=== PATIENT | male | born 1955 | race African-American/Black ===

== ENCOUNTER 2018-11-29 06:31 | Outpatient (CLI) | payer OTHER ==
[2018-11-29] VITALS (9 sets, daily range): BP systolic 139–171; BP diastolic 58–79
[~2018-11-29] VITALS: Ht 188 cm; Wt 77.1 kg
[~2018-11-29 06:31] MED LIST changes: -AMLO1TAB95 PO; -HYDR-2869 PO; -LEVO750T31 PO; -LORA2ORA7 PO; -MORP20SO PO; -ONDA8TAB9 PO; -OXYC10TA PO; -OXYC5TAB4 PO; -PANT20TA2 PO; -QUET50TA5 PO; -SERT100T8 PO; -TIZA4TAB PO; -TIZA4TAB8 PO
[2018-11-29 07:33] LABS: BASO # 0.1 x10^3/uL (0.0-0.2); BASO % 1 % (0-3); EOS % 0 % (0-3); HEMATOCRIT 35.3 % (39.0-53.0); HEMOGLOBIN 11.5 g/dL (13.0-17.5); LYMPH # 1.7 x10^3/uL (1.0-4.8); LYMPH % 12 % (24-48); MEAN CORPUSCULAR HEMOGLOBIN 31 pg (25-35); MEAN CORPUSCULAR HGB CONC 33 g/dL (31-37); MEAN CORPUSCULAR VOLUME 95 fL (79-100); MONO # 0.6 x10^3/uL (0.0-1.1); MONO % 5 % (0-9); NEUT # 11.8 x10^3uL (1.8-7.7); NEUT % 83 % (31-73); PLATELET COUNT 229 x10^3/uL (140-400); RED BLOOD COUNT 3.74 x10^6/uL (4.30-5.70); RED CELL DISTRIBUTION WIDTH 13.9 % (11.5-14.5); WHITE BLOOD COUNT 14.3 x10^3/uL (4.0-11.0)
[2018-11-29 07:46] LABS: PROTHROMBIN TIME PATIENT 15.9 SEC (11.7-14.0)
[2018-11-29] MEDS ORDERED: HYDR-2869 PO (07:48)
[2018-11-29] MEDS ORDERED: TIZA4TAB PO (07:48)
[2018-11-29] MEDS ORDERED: PANT20TA2 PO (07:48)
[2018-11-29] MEDS ORDERED: AMLO1TAB95 PO (07:48)
[2018-11-29] MEDS ORDERED: LIDOCAINE 1%/EPI 1:100,000 20 ML VIAL. ONE (07:56)
[2018-11-29] MEDS ORDERED: MIDAZOLAM HCL/PF 2 MG/2 ML VIAL. ONE (08:45)
[2018-11-29] MEDS ORDERED: fentaNYL PF VIAL 100 MCG/2 ML VIAL ONE (08:46)
[2018-11-29] MEDS ORDERED: fentaNYL PF VIAL 100 MCG/2 ML VIAL IV ONE (09:15)
[2018-11-29] MEDS ORDERED: MIDAZOLAM HCL/PF 2 MG/2 ML VIAL. IV ONE (09:15)
[2018-11-29] MEDS ORDERED: LIDOCAINE 1%/EPI 1:100,000 20 ML VIAL. IJ ONE (09:15)
[2018-11-29] MEDS ORDERED: IV NORMAL SALINE 250ML 250 ML IRR ONE (09:15)
--- NOTE | 2018-11-29 11:12 | NUR ---
Discharge Note: MELANY HIGUERA Discharge instructions and discharge home medications reviewed with Spouse and a copy given. All questions have been answered and understanding verbalized. The following instructions and handouts were given: moderate sedation adult and implanted port instructions Discontinued lines and drains: Peripheral IV intact. Patient discharged to Home or Self Care withSpousevia Wheelchair Ultrasound was performed in CV/OBS area before patient was discharged.
--- NOTE | 2018-11-29 13:55 | RAD ---
Procedure: Ultrasound and fluoroscopically guided placement of right internal jugular power port.. 11/29/2018 1:51 PM Clinical Indication: Cholangiocarcinoma Sedation: Conscious sedation was administered for 30 minutes. The patient was monitored by a qualified independent observer throughout the time of sedation. Please refer to the medical record for exact doses of medications utilized to achieve moderate sedation. Fluoroscopy time: 0.3 minutes Dose area product: 0.3 Gycm2 Consent: The procedure was explained in its entirety to the patient or the patients designated product support representative by a member of the treatment team, including a discussion of the risks, benefits and commonly accepted alternatives to the procedure, as well as the expected consequences of no therapy whatsoever. Discussion of the risks included, but was not limited to, those that are most frequent and those that are rare but possibly severe or life-threatening, as well as the possibility of unforeseen complications. Technique and Findings: All elements of maximal sterile barrier technique including the use of a cap, mask, sterile gown, sterile gloves, large sterile sheet, appropriate hand hygiene, and 2% chlorhexidine for cutaneous antisepsis (or acceptable alternative antiseptic per current guidelines) were followed for this procedure. Following informed consent, and a timeout procedure, the patient was prepped and draped in the usual sterile fashion. Ultrasound interrogation of the right neck revealed patency and compressibility of the right internal jugular vein. A 21-gauge micropuncture was then used to gain access to this vein under ultrasound guidance. A hard copy ultrasound image was recorded. The needle was exchanged over a wire for a sheath. A 1 inch incision was made several centimeters inferior to the venotomy site. A catheter was tunneled from this site dermatotomy site in the neck. Catheter was advanced through peel-away sheath such that its tip was in the proximal right atrium with the patient supine. The catheter was trimmed to length and connected to the port reservoir. The port was found to flush and aspirate normally. The wound was closed in layers using 4-0 Vicryl suture. Sterile dressings were applied. Impression: Successful ultrasound and fluoroscopically guided placement of a right internal jugular PowerPort
[2018-11-30] MEDS ORDERED: OXYC10TA PO ×4 (13:36→14:49)
[2018-11-30] MEDS ORDERED: SERT100T8 PO (13:36)
[2018-11-30] MEDS ORDERED: ONDA8TAB9 PO (13:36)
[2018-11-30] MEDS ORDERED: QUET50TA5 PO (13:36)
[2018-11-30] MEDS ORDERED: OXYC5TAB4 PO (13:36)
[2018-11-30] MEDS ORDERED: TIZA4TAB8 PO (13:38)
== END 2018-11-29 11:00 | disposition home or self-care (01) ==
LOC: INTRAD 06:31
PROVIDERS: ATTEND Internal Medicine Hematology & Oncology
DX: C22.1 Intrahepatic bile duct carcinoma (principal); Z88.0 Allergy status to penicillin
CPT/HCPCS: 36415; 36561; 76937; 77001; 85025; 85610; 85730; 99152; 99153; C1788; C1892; J0696; J2250; J3010; J3490; J7050; C1751; J7030

== ENCOUNTER → 2018-11-29 | Outpatient (CLI) | payer OTHER ==
[~2018-11-29] MED LIST: AMLO1TAB95 PO; FURO-69 PO; HYDR-2869 PO; LEVO750T31 PO; LORA2ORA7 PO; LOSA1TAB25 PO; MORP20SO PO; ONDA8TAB9 PO; OXYC10TA PO; OXYC1TAB22 PO; OXYC5TAB4 PO; PANT20TA2 PO; PREG50CA PO; QUET50TA5 PO; SERT100T8 PO; SERT25TA PO; TAMS0.4C97 PO; TIZA4TAB PO; TIZA4TAB8 PO; VALIUM10 MG PO
[2018-11-29 10:10] VITALS: BP 162/78
--- NOTE | 2018-11-29 10:59 | RAD ---
Right lower extremity venous duplex study 11/29/2018 10:55 AM Clinical History: Right calf pain Technique: Using a combination of real time ultrasound imaging and color-flow and pulse Doppler imaging techniques, including spectral analysis, graded compression and augmentation, duplex evaluation of the deep venous system of the right lower extremity was performed. Multiple images were obtained. Findings: There is no sonographic evidence of deep venous thrombosis involving the visualized deep venous structures of the right lower extremity Impression: No evidence of deep venous thrombosis involving the right lower extremity Electronically signed by: Nestor Marcelino MD (11/29/2018 10:56 AM) [facility]
== END | disposition home or self-care (01) ==
LOC: US 10:23
PROVIDERS: ATTEND Internal Medicine Hematology & Oncology
DX: M79.661 Pain in right lower leg (principal)
CPT/HCPCS: 93971

== ENCOUNTER 2018-11-30 09:32 | Inpatient (IN) | payer OTHER ==
[2018-11-30] VITALS (11 sets, daily range): BP systolic 106–163; BP diastolic 56–74
[~2018-11-30] VITALS: Ht 182.9 cm; Wt 77.7 kg
[~2018-11-30 09:32] MED LIST changes: +AMLO1TAB95 PO; +HYDR-2869 PO; +PANT20TA2 PO; +TIZA4TAB PO
[2018-11-30 10:17] LABS: BASO % 0 % (0-3); EOS % 0 % (0-3); HEMATOCRIT 36.8 % (39.0-53.0); HEMOGLOBIN 12.1 g/dL (13.0-17.5); LYMPH # 0.5 x10^3/uL (1.0-4.8); LYMPH % 3 % (24-48); MEAN CORPUSCULAR HEMOGLOBIN 31 pg (25-35); MEAN CORPUSCULAR HGB CONC 33 g/dL (31-37); MEAN CORPUSCULAR VOLUME 94 fL (79-100); MONO # 0.2 x10^3/uL (0.0-1.1); MONO % 1 % (0-9); NEUT # 16.6 x10^3uL (1.8-7.7); NEUT % 96 % (31-73); PLATELET COUNT 181 x10^3/uL (140-400); RED BLOOD COUNT 3.93 x10^6/uL (4.30-5.70); WHITE BLOOD COUNT 17.3 x10^3/uL (4.0-11.0)
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
[2018-11-30 10:36] LABS: PROTHROMBIN TIME PATIENT 17.9 SEC (11.7-14.0)
[2018-11-30 10:52] LABS: CALCIUM 9.4 mg/dL (8.5-10.1); CREATININE 1.7 mg/dL (0.7-1.3); GFR 49.3; POTASSIUM 3.8 mmol/L (3.5-5.1)
[2018-11-30 10:58] LABS: ALBUMIN 2.5 g/dL (3.4-5.0); ALBUMIN/GLOBULIN RATIO 0.5 (1.0-1.7); TOTAL BILIRUBIN 4.7 mg/dL (0.2-1.0); TOTAL PROTEIN 7.9 g/dL (6.4-8.2)
[2018-11-30] MEDS ORDERED: VANCOMYCIN 1GM IVPB FOR OMNI 250 ML IV ONE (11:15)
[2018-11-30] MEDS ORDERED: VANCOMYCIN 1.5 GM in IV NORMAL SALINE 500ML BAG 500 ML IV ONE (11:15)
[2018-11-30] MEDS ORDERED: IV NORMAL SALINE 1000ML BAG 1,000 ML IV ONE ×3 (11:15→16:00)
[2018-11-30 11:20] LABS: INFLUENZA A PATIENT NEGATIVE (NEGATIVE); INFLUENZA B PATIENT NEGATIVE (NEGATIVE)
--- NOTE | 2018-11-30 11:40 | EKG ---
[facility] [address] [place] [address] Test Date: 2018-11-30 Test Time: 10:55:53 Pat Name: TOMEKA HIGUERA Department: Room: Gender: M Picker Tender: : 1955 Requested By: AIXA HAMMER Order Number: [id number] Reading MD: Sergo Pina MD Measurements Intervals [place] Rate: 88 P: 35 [place]: 142 QRS: -19 QRSD: 86 T: 31 QT: 430 QTc: 524 Interpretive Statements SINUS RHYTHM Electronically Signed On 12-03-2018 16:08:21 CDT by Sergo Pina MD
[2018-11-30 11:48] LABS: % BANDS 17 % (0-9); % LYMPHS 3 % (24-48); % METAS 3 % (0-0); % MONOS 4 % (0-10); % SEGS 73 % (35-66); PLT ESTIMATE ADEQUATE (ADEQUATE); TOXIC VACUOLATION PRESENT
[2018-11-30] MEDS ORDERED: ONDANSETRON PF 4 MG/2 ML VIAL. IV PRN (12:00)
[2018-11-30] MEDS ORDERED: MORPHINE SULFATE 2 MG/ML VIAL. IV PRN (12:00)
[2018-11-30] MEDS ORDERED: ONDA8TAB9 PO (13:36)
[2018-11-30] MEDS ORDERED: OXYC10TA PO ×4 (13:36→14:49)
[2018-11-30] MEDS ORDERED: OXYC5TAB4 PO (13:36)
[2018-11-30] MEDS ORDERED: SERT100T8 PO (13:36)
[2018-11-30] MEDS ORDERED: QUET50TA5 PO (13:36)
[2018-11-30] MEDS ORDERED: TIZA4TAB8 PO (13:38)
[2018-11-30 13:40] LABS: BILIRUBIN,URINE MODERATE (NEG); CLARITY,URINE CLEAR; NITRITE,URINE NEGATIVE (NEG); PH,URINE 5.5; PROTEIN,URINE 100 mg/dL (NEG-TRACE)
[2018-11-30 13:50] LABS: COLOR,URINE AMBER
[2018-11-30 13:51] LABS: AMORPHOUS SEDIMENT,UR PRESENT /HPF; BACTERIA,URINE FEW /HPF (0-FEW); HYALINE CASTS, URINE FEW /HPF; SQUAMOUS EPITHELIAL CELL,UR FEW /LPF
--- NOTE | 2018-11-30 15:10 | PDOC1 ---
History and Physical Date of Admission Date of Admission November 30, 2018 Identification/Chief Complaint Chief Complaint Fever Source Source: Caregiver, Chart review, Patient History of Present Illness History of Present Illness Patient is a 53-year-old male with recently diagnosed hepatocellular carcinoma who underwent a port placement that the then night prior to his admission. The patient has been recently diagnosed with [place] tumor this goes back 1 month ago to November 01. The patient was transferred during that initial for his hospital stay to in order to have biliary stents placed. His jaundice has improved nevertheless continues to be jaundiced since his port placement patient started feeling weak and he had a temperature at home with chills. He also felt nauseous no vomiting has been reported by his spouse denied prior but on the day of admission he presented a very foul-smelling emetic bile looking material episode patient the time my evaluation is in no apparent distress laying in bed. The patient denies sick contacts no changes to his medications recently he has not started yet chemotherapy which was scheduled to be started today. No headache no generalized malaise no stuffy or runny nose has been reported no throat pain no chest pain no palpitations no shortness of breath no pleurisy. The patient is severely incapacitated due asked to admit the patient for further evaluation treatment. Plan of care explaining detail to the was at bedside feeding with the story given the patient's mental status. All of her concerns were addressed the best my abilities Past Medical History Cardiovascular: HTN Pulmonary: No pertinent hx Heme/Onc: Other (hepatocellular carcinoma) Hepatobiliary: No pertinent hx Psych: No pertinent hx Rheumatologic: No pertinent hx Infectious disease: No pertinent hx Renal/: Benign prostatic enlarg. Endocrine: No pertinent hx Past Surgical History Past Surgical History: Hernia Repair, Other Family History Family History: No Significant Family History: Other Social History ALCOHOL: none Current Problem List Problem List Problems Medical Problems: (1) Sepsis Status: Acute Current Medications Current Medications Current Medications Medications (Trade) Dose Ordered Sig/Emily Start Time Stop Time Status Last Admin Dose Admin Levofloxacin/ Dextrose 150 ml @ 100 mls/hr 1X ONCE 11/30/18 11:15 11/30/18 12:44 DC 11/30/18 11:34 100 MLS/HR Morphine Sulfate (Morphine Sulfate) 2 mg PRN Q2HR PRN 11/30/18 12:00 12/01/18 11:59 Ondansetron HCl (Zofran) 4 mg PRN Q8HRS PRN 11/30/18 12:00 12/01/18 11:59 Sodium Chloride 1,000 ml @ 75 mls/hr [id number] 11/30/18 12:00 12/01/18 11:59 Vancomycin HCl 1.5 gm/Sodium Chloride 500 ml @ 250 mls/hr 1X ONCE 11/30/18 11:15 11/30/18 13:14 DC 11/30/18 12:07 250 MLS/HR Allergies Allergies Allergies Coded Allergies Type Severity Reaction Last Updated Verified Penicillins Allergy Intermediate 10/29/18 No ROS Review of System CONSTITUTIONAL: No fever or chills EYES: No recent changes SKIN: No rash or itching CARDIOVASCULAR: No chest pain, syncope, palpitations, or edema RESPIRATORY: No SOB or cough GASTROINTESTINAL: No nausea, vomiting or abdominal pain NEUROLOGICAL: No headaches or weakness ENDOCRINE: No cold or heat intolerance GENITOURINARY: No urgency or frequency of urination MUSCULOSKELETAL: No back pain or joint pain LYMPHATICS: No enlarged lymph nodes PSYCHIATRIC: No anxiety or depression Physical Exam Physical Exam Gen.: Chronically ill-appearing jaundiced in no apparent distress Head: Normal shape atraumatic Eyes: Pupils equal reactive to light and accommodation, normal conjunctivae and lids Ears: Normal shape Nose: Normal shape no trauma Mouth: No exudates of the back of throat no thrush no lesions Neck: Supple no JVD no carotid bruit or lymphadenopathy no thyromegaly Chest: Lungs clear to auscultation with good inspiratory effort no crackles rales or rhonchi Cardiovascular: S1-S2 regular rhythm no murmurs gallops or rubs Abdomen: Bowel sounds present soft nontender no hepatosplenomegaly appreciated sign Extremities: No clubbing no cyanosis no edema peripheral pulses palpated bilaterally Neurological: Alert awake oriented in person time place and situation, cranial nerves II through XII intact, no motor or sensory deficits appreciated Psych: Appropriate mood, cooperative Vitals Vitals Vital Signs Date Time Temp Pulse Resp B/P (MAP) Pulse Ox O2 Delivery O2 Flow Rate FiO2 11/30/18 14:00 79 18 127/56 (79) 100 Room Air 11/30/18 10:59 98.3 98.3 Labs Labs Laboratory Tests Test 11/30/18 10:03 11/30/18 10:10 11/30/18 13:25 11/30/18 14:05 White Blood Count 17.3 x10^3/uL (4.0-11.0) Red Blood Count 3.93 x10^6/uL (4.30-5.70) Hemoglobin 12.1 g/dL (13.0-17.5) Hematocrit 36.8 % (39.0-53.0) Mean Corpuscular Volume 94 fL (79-100) Mean Corpuscular Hemoglobin 31 pg (25-35) Mean Corpuscular Hemoglobin Concent 33 g/dL (31-37) Red Cell Distribution Width 14.0 % (11.5-14.5) Platelet Count 181 x10^3/uL (140-400) Neutrophils (%) (Auto) 96 % (31-73) Lymphocytes (%) (Auto) 3 % (24-48) Monocytes (%) (Auto) 1 % (0-9) Eosinophils (%) (Auto) 0 % (0-3) Basophils (%) (Auto) 0 % (0-3) Neutrophils # (Auto) 16.6 x10^3uL (1.8-7.7) Lymphocytes # (Auto) 0.5 x10^3/uL (1.0-4.8) Monocytes # (Auto) 0.2 x10^3/uL (0.0-1.1) Eosinophils # (Auto) 0.0 x10^3/uL (0.0-0.7) Basophils # (Auto) 0.0 x10^3/uL (0.0-0.2) Segmented Neutrophils % 73 % (35-66) Band Neutrophils % 17 % (0-9) Lymphocytes % 3 % (24-48) Monocytes % 4 % (0-10) Metamyelocytes % 3 % (0-0) Toxic Vacuolation Present Platelet Estimate Adequate (ADEQUATE) Prothrombin Time 17.9 SEC (11.7-14.0) Prothromb Time International Ratio 1.5 (0.8-1.1) Activated Partial Thromboplast Time 40 SEC (24-38) Sodium Level 139 mmol/L (136-145) Potassium Level 3.8 mmol/L (3.5-5.1) Chloride Level 101 mmol/L (98-107) Carbon Dioxide Level 25 mmol/L (21-32) Anion Gap 13 (6-14) Blood Urea Nitrogen 27 mg/dL (8-26) Creatinine 1.7 mg/dL (0.7-1.3) Estimated GFR (Cockcroft-Gault) 49.3 BUN/Creatinine Ratio 16 (6-20) Glucose Level 284 mg/dL (70-99) Lactic Acid Level 2.8 mmol/L (0.4-2.0) 1.4 mmol/L (0.4-2.0) Calcium Level 9.4 mg/dL (8.5-10.1) Total Bilirubin 4.7 mg/dL (0.2-1.0) Aspartate Amino Transf (AST/SGOT) 43 U/L (15-37) Alanine Aminotransferase (ALT/SGPT) 41 U/L (16-63) Alkaline Phosphatase 373 U/L (46-116) Ammonia 14 mcmol/L (11-34) Troponin I Quantitative 0.144 ng/mL (0.000-0.055) Total Protein 7.9 g/dL (6.4-8.2) Albumin 2.5 g/dL (3.4-5.0) Albumin/Globulin Ratio 0.5 (1.0-1.7) Amylase Level 13 U/L (25-115) Lipase 36 U/L (73-393) Influenza Type A Antigen Negative (NEGATIVE) Influenza Type B Antigen Negative (NEGATIVE) Urine Collection Type Unknown Urine Color Lissa Urine Clarity Clear Urine pH 5.5 Urine Specific [place] 1.020 Urine Protein 100 mg/dL (NEG-TRACE) Urine Glucose (UA) Negative mg/dL (NEG) Urine Ketones (Stick) Trace mg/dL (NEG) Urine Blood Negative (NEG) Urine Nitrite Negative (NEG) Urine Bilirubin Moderate (NEG) Urine Urobilinogen Dipstick 1.0 mg/dL (0.2 mg/dL) Urine Leukocyte Esterase Small (NEG) Urine RBC 1-2 /HPF (0-2) Urine WBC 1-4 /HPF (0-4) Urine Squamous Epithelial Cells Few /LPF Urine Amorphous Sediment Present /HPF Urine Bacteria Few /HPF (0-FEW) Urine Hyaline Casts Few /HPF Urine Mucus Slight /LPF Laboratory Tests Test 11/30/18 10:03 11/30/18 10:10 11/30/18 13:25 11/30/18 14:05 White Blood Count 17.3 x10^3/uL (4.0-11.0) Red Blood Count 3.93 x10^6/uL (4.30-5.70) Hemoglobin 12.1 g/dL (13.0-17.5) Hematocrit 36.8 % (39.0-53.0) Mean Corpuscular Volume 94 fL (79-100) Mean Corpuscular Hemoglobin 31 pg (25-35) Mean Corpuscular Hemoglobin Concent 33 g/dL (31-37) Red Cell Distribution Width 14.0 % (11.5-14.5) Platelet Count 181 x10^3/uL (140-400) Neutrophils (%) (Auto) 96 % (31-73) Lymphocytes (%) (Auto) 3 % (24-48) Monocytes (%) (Auto) 1 % (0-9) Eosinophils (%) (Auto) 0 % (0-3) Basophils (%) (Auto) 0 % (0-3) Neutrophils # (Auto) 16.6 x10^3uL (1.8-7.7) Lymphocytes # (Auto) 0.5 x10^3/uL (1.0-4.8) Monocytes # (Auto) 0.2 x10^3/uL (0.0-1.1) Eosinophils # (Auto) 0.0 x10^3/uL (0.0-0.7) Basophils # (Auto) 0.0 x10^3/uL (0.0-0.2) Segmented Neutrophils % 73 % (35-66) Band Neutrophils % 17 % (0-9) Lymphocytes % 3 % (24-48) Monocytes % 4 % (0-10) Metamyelocytes % 3 % (0-0) Toxic Vacuolation Present Platelet Estimate Adequate (ADEQUATE) Prothrombin Time 17.9 SEC (11.7-14.0) Prothromb Time International Ratio 1.5 (0.8-1.1) Activated Partial Thromboplast Time 40 SEC (24-38) Sodium Level 139 mmol/L (136-145) Potassium Level 3.8 mmol/L (3.5-5.1) Chloride Level 101 mmol/L (98-107) Carbon Dioxide Level 25 mmol/L (21-32) Anion Gap 13 (6-14) Blood Urea Nitrogen 27 mg/dL (8-26) Creatinine 1.7 mg/dL (0.7-1.3) Estimated GFR (Cockcroft-Gault) 49.3 BUN/Creatinine Ratio 16 (6-20) Glucose Level 284 mg/dL (70-99) Lactic Acid Level 2.8 mmol/L (0.4-2.0) 1.4 mmol/L (0.4-2.0) Calcium Level 9.4 mg/dL (8.5-10.1) Total Bilirubin 4.7 mg/dL (0.2-1.0) Aspartate Amino Transf (AST/SGOT) 43 U/L (15-37) Alanine Aminotransferase (ALT/SGPT) 41 U/L (16-63) Alkaline Phosphatase 373 U/L (46-116) Ammonia 14 mcmol/L (11-34) Troponin I Quantitative 0.144 ng/mL (0.000-0.055) Total Protein 7.9 g/dL (6.4-8.2) Albumin 2.5 g/dL (3.4-5.0) Albumin/Globulin Ratio 0.5 (1.0-1.7) Amylase Level 13 U/L (25-115) Lipase 36 U/L (73-393) Influenza Type A Antigen Negative (NEGATIVE) Influenza Type B Antigen Negative (NEGATIVE) Urine Collection Type Unknown Urine Color Lissa Urine Clarity Clear Urine pH 5.5 Urine Specific [place] 1.020 Urine Protein 100 mg/dL (NEG-TRACE) Urine Glucose (UA) Negative mg/dL (NEG) Urine Ketones (Stick) Trace mg/dL (NEG) Urine Blood Negative (NEG) Urine Nitrite Negative (NEG) Urine Bilirubin Moderate (NEG) Urine Urobilinogen Dipstick 1.0 mg/dL (0.2 mg/dL) Urine Leukocyte Esterase Small (NEG) Urine RBC 1-2 /HPF (0-2) Urine WBC 1-4 /HPF (0-4) Urine Squamous Epithelial Cells Few /LPF Urine Amorphous Sediment Present /HPF Urine Bacteria Few /HPF (0-FEW) Urine Hyaline Casts Few /HPF Urine Mucus Slight /LPF VTE Prophylaxis Ordered VTE Prophylaxis Devices: No VTE Pharmacological Prophylaxi: Yes Assessment/Plan Assessment/Plan Acute febrile illness Leukocytosis suspicious for underlying infection causing febrile illness History of recently diagnosed metastatic liver cancer Anion gap acidosis secondary to elevation lactic acid with MAXIMUM TEMPERATURE 14 at home Current smoker, patient's says that he has not smoked in 5 days Lactic acid most likely secondary to low effective circulatory volume acute renal failure 2 to vasometer Marijuana use Plan: We'll consult Dr. Valdes Fluid resuscitation Will resume home medications especially her Synthroid for his history of biliary acute distention Follow results from his cultures resume home meds continue broad spectrum antibiotics IVC prophylaxis with SCD and teds FABI ABURTO MD Nov 30, 2018 15:10
[2018-11-30] MEDS ORDERED: OXYCODONE HCL 20 MG PO PRN (15:15)
[2018-11-30] MEDS: TAMSULOSIN 0.4 MG CAP.ER.24H. PO SCH (15:40)
[2018-11-30] MEDS: SERTRALINE 50 MG TABLET. PO SCH (15:40)
[2018-11-30] MEDS: oxyCODONE IR 5 MG TABLET PO SCH ×2 (15:40→21:18)
[2018-11-30] MEDS: PANTOPRAZOLE 40 MG TABLET.DR. PO SCH (15:40)
[2018-11-30] MEDS: LOSARTAN POTASSIUM 50 MG TABLET. PO SCH (15:41)
[2018-11-30] MEDS: amLODIPine BESYLATE 5 MG TABLET PO SCH (15:41)
[2018-11-30] MEDS: IV NORMAL SALINE 1000ML BAG 1,000 ML IV SCH (15:42)
[2018-11-30] MEDS: FUROSEMIDE 20 MG TABLET PO SCH (15:43)
[2018-11-30] MEDS ORDERED: ONDANSETRON ODT 4 MG TAB.RAPDIS. PO SCH (16:00)
[2018-11-30] MEDS ORDERED: ONDANSETRON ODT 4 MG TAB.RAPDIS. PO PRN (16:00)
--- NOTE | 2018-11-30 17:03 | NUR ---
Patient of Dr Almendarez admit to room 111 at 1245 with sepsis and liver cancer. Ying catheter placed, NS bolus infusing along with Vanc. Levaquin was already infused. Patient is mental status is A/O x2 and lethargic. Patient is jaundice, with tea colored urine. Vital signs are WNL and patient is on room air. Dr Almendarez called along with consult to Dr Hernández. Patients at bedside. Home meds restarted, and gave patient a sandwich to eat. In no apparent distress, tolerated the food well. Will continue to monitor.
--- NOTE | 2018-11-30 18:42 | NUR ---
Pharmacy Vancomycin Dosing Note S:Consulted to monitor and dose vancomycin started 11/30/18. O:TOMEKA HIGUERA is a 63 year old M with Sepsis . Height: 6 feet, 0 inches Weight: 74.468748 kg [place] Body Weight: 77.60 Adjusted Body Weight: 76.36 Dosing Weight: Actual Other Antibiotics: Levaquin LABS: Last BUN: 27 Last Creatinine: 1.7 Creatinine Clearance: 46 mL/min Last WBC: 17.3 Last Procalcitonin: Tmax (past 24 hours): 98.4 Microbiology: I/O: Drug Levels: Last level: on at Last dose given 11/30/18 at 1207 Vancomycin Dosing: Loading Dose: 1500 mg x1 Dosing Weight: Actual Target Trough: 15-20 A: Based on weight and est. CrCl: P: 1. Vancomycin 1500mg, followed by Vancomycin 1000 mg IV q24h. 2. Follow up Trough level on 12/02/18 at 1130. 3. Pharmacy will continue to monitor, follow and adjust therapy as needed. Mushtaq Medeiros, [facility], 11/30/18 [id number]
[2018-11-30] MEDS: QUEtiapine 25 MG TABLET. PO SCH (21:00)
[2018-11-30] MEDS: tiZANidine 4 MG TABLET. PO SCH (21:46)
[2018-11-30] MEDS: diazePAM 5 MG TABLET PO SCH (21:47)
[2018-11-30] MEDS: PREGABALIN 50 MG CAPSULE PO SCH (21:47)
--- NOTE | 2018-11-30 23:12 | CONS ---
DATE OF CONSULTATION: 11/30/2018 MEDICAL ONCOLOGY CONSULTATION Consultation requested by Dr. Fredy Almendarez. REASON FOR CONSULTATION: Cholangiocarcinoma. HISTORY OF PRESENT ILLNESS: The patient is a 63-year-old gentleman who has had symptoms of nausea, vomiting, abdominal pain in October 2018. 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 He was evaluated by hepatobiliary surgery and he was thought to be unresectable because it involved both sites of the liver. He was then referred to me for chemotherapy, which was deferred because of poor performance status. He was admitted to [facility] on 11/30/2018 with complaints of fever. He also had nausea and vomiting. He was admitted to the ICU and started on antibiotics. PAST MEDICAL HISTORY: Hypertension, benign prostatic enlargement, anxiety, arthritis, congestive heart failure, depression, degenerative joint disease. FAMILY HISTORY: Negative for malignancy. SOCIAL HISTORY: He has a history of smoking of 1 to 1-1/2 pack per day, which he started at the age of 11. REVIEW OF SYSTEMS: A 12-point review of systems was performed. Pertinent positives are mentioned in the history of present illness. Rest of the system review is negative. PHYSICAL EXAMINATION: GENERAL APPEARANCE: The patient is a 63-year-old gentleman who is in no acute cardiorespiratory distress. VITAL SIGNS: Blood pressure 149/65, temperature 97.6. HEENT: Head is atraumatic, normocephalic. EYES: He has evidence of icterus. NECK: Supple. CHEST: Bilaterally symmetrical. HEART: S1, S2 normal. ABDOMEN: Soft, nontender. CENTRAL NERVOUS SYSTEM: No focal deficits. LYMPHATICS: No lymphadenopathy. SKIN: No rashes. PSYCHOLOGIC: Mood and affect are appropriate. LABORATORY DATA: WBC 17.3, hemoglobin 12.1, platelet count 181. Bilirubin 4.7. IMPRESSION AND PLAN: 1. 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 He was evaluated by hepatobiliary surgery at [facility] and he was deemed to be unresectable. I had seen him at my office for discussion regarding chemotherapy, which had to be deferred because of declining functional status. He continues to feel very weak. He is still wanting to try chemotherapy. I explained to him that his functional status is 4 and it precludes chemotherapy at this point. I did discuss with him regarding palliative care and hospice and he would like to think about it. He is still hoping that he will get stronger and be eligible for chemotherapy. I will consult palliative care to discuss further and also to help with advanced directives. I discussed with the patient's . 2. Jaundice, improving. 3. Fever. Appreciate management per primary team. KAROLYN NIELSON MD DR: BLAISE/crescencio JOB#: [id number] / [id number] BLANQUITA
[2018-12-01] VITALS (14 sets, daily range): BP systolic 105–175; BP diastolic 54–77
[2018-12-01] MEDS: IV NORMAL SALINE 1000ML BAG 1,000 ML IV SCH (02:10)
[2018-12-01] MEDS: tiZANidine 4 MG TABLET. PO SCH ×3 (05:43→22:04)
[2018-12-01 06:04] LABS: BASO % 0 % (0-3); EOS % 0 % (0-3); HEMATOCRIT 26.9 % (39.0-53.0); HEMOGLOBIN 9.1 g/dL (13.0-17.5); LYMPH # 1.3 x10^3/uL (1.0-4.8); LYMPH % 16 % (24-48); MEAN CORPUSCULAR HEMOGLOBIN 32 pg (25-35); MEAN CORPUSCULAR HGB CONC 34 g/dL (31-37); MEAN CORPUSCULAR VOLUME 94 fL (79-100); MONO # 0.5 x10^3/uL (0.0-1.1); MONO % 6 % (0-9); NEUT # 6.7 x10^3uL (1.8-7.7); NEUT % 77 % (31-73); PLATELET COUNT 103 x10^3/uL (140-400); RED BLOOD COUNT 2.86 x10^6/uL (4.30-5.70); RED CELL DISTRIBUTION WIDTH 14.3 % (11.5-14.5); WHITE BLOOD COUNT 8.6 x10^3/uL (4.0-11.0)
[2018-12-01 06:26] LABS: ALBUMIN 1.8 g/dL (3.4-5.0); ALBUMIN/GLOBULIN RATIO 0.4 (1.0-1.7); CREATININE 1.2 mg/dL (0.7-1.3); GFR 73.8; POTASSIUM 4.3 mmol/L (3.5-5.1); TOTAL BILIRUBIN 3.2 mg/dL (0.2-1.0); TOTAL PROTEIN 5.9 g/dL (6.4-8.2)
[2018-12-01] MEDS: PANTOPRAZOLE 40 MG TABLET.DR. PO SCH (07:54)
[2018-12-01] MEDS ORDERED: OLMESARTAN MED PO SCH (09:00)
[2018-12-01] MEDS: FUROSEMIDE 20 MG TABLET PO SCH (09:00)
[2018-12-01] MEDS ORDERED: AMLODIPINE BES PO SCH (09:00)
[2018-12-01] MEDS: PREGABALIN 50 MG CAPSULE PO SCH ×2 (09:00→20:26)
[2018-12-01] MEDS: LOSARTAN POTASSIUM 50 MG TABLET. PO SCH (09:14)
[2018-12-01] MEDS: oxyCODONE IR 5 MG TABLET PO SCH ×3 (09:14→20:25)
[2018-12-01] MEDS: amLODIPine BESYLATE 5 MG TABLET PO SCH (09:15)
[2018-12-01] MEDS: SERTRALINE 50 MG TABLET. PO SCH (09:15)
[2018-12-01] MEDS: TAMSULOSIN 0.4 MG CAP.ER.24H. PO SCH (09:15)
[2018-12-01] MEDS: diazePAM 5 MG TABLET PO SCH ×2 (09:15→20:26)
[2018-12-01] MEDS ORDERED: MAGNESIUM HYDROXIDE 2,400 MG/30 ML ORAL.SUSP. PO ONE (10:30)
--- NOTE | 2018-12-01 11:06 | PDOC2 ---
PALLIATIVE CARE Palliative Care Note Palliative Care Consult requested by Dr. Hernández to address AD and plan of care. 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 He was evaluated by hepatobiliary surgery at [facility] and he was deemed to be unresectable. Sepsis. Met with patient and S/O Naty Barber.(together 25 years) Patient is able to accurately review medical condition. Patient and Naty state patient has AD and will bring copy for record. Discussed Code Status; Patient does not want resuscitation. Understands without this attempt he will likely . Outside the Hospital DNR/DNI read and signed. Discussed options for care. Continue current treatment plan---understands his weakness is significant and he may not get strong enough to pursue chemotherapy vs Hospice and allow nature to take its course. Work; heavy work with metal. Reviewed Hospice support. Naty will need to continue to work as much as possible. No other friends and family support noted at this time. They would like to discuss these options before making a decision. Plan; DNR/DNI. 1410 Met with patient and Naty. They have decided to pursue Hospice Support when discharged. If patient gets stronger they would like to leave the option of chemotherapy available. Plan; Home with Hospice when discharged. DME; Bed, BSC Above reviewed with Kelsi CLARK who will assist with discharge plans. SARA HOLLINGSWORTH Dec 01, 2018 11:06
--- NOTE | 2018-12-01 11:22 | NUR ---
Patient to transfer from room 111 to 652 via wheelchair. Telephone report given to DARREN Thakur. Plan of care reviewed, labs, and current orders. At time of transfer patients VS WNL, patient no apparent distress with family at bedside.
--- NOTE | 2018-12-01 11:34 | PDOC ---
Infectious Disease Note Vital Sign Vital Signs Vital Signs Date Time Temp Pulse Resp B/P (MAP) Pulse Ox O2 Delivery O2 Flow Rate FiO2 12/01/18 11:24 98.3 78 17 171/76 (107) 99 Room Air 98.3 Labs Lab Laboratory Tests Test 11/30/18 13:25 11/30/18 14:05 12/01/18 05:05 Urine Collection Type Unknown Urine Color Lissa Urine Clarity Clear Urine pH 5.5 Urine Specific [place] 1.020 Urine Protein 100 mg/dL (NEG-TRACE) Urine Glucose (UA) Negative mg/dL (NEG) Urine Ketones (Stick) Trace mg/dL (NEG) Urine Blood Negative (NEG) Urine Nitrite Negative (NEG) Urine Bilirubin Moderate (NEG) Urine Urobilinogen Dipstick 1.0 mg/dL (0.2 mg/dL) Urine Leukocyte Esterase Small (NEG) Urine RBC 1-2 /HPF (0-2) Urine WBC 1-4 /HPF (0-4) Urine Squamous Epithelial Cells Few /LPF Urine Amorphous Sediment Present /HPF Urine Bacteria Few /HPF (0-FEW) Urine Hyaline Casts Few /HPF Urine Mucus Slight /LPF Lactic Acid Level 1.4 mmol/L (0.4-2.0) White Blood Count 8.6 x10^3/uL (4.0-11.0) Red Blood Count 2.86 x10^6/uL (4.30-5.70) Hemoglobin 9.1 g/dL (13.0-17.5) Hematocrit 26.9 % (39.0-53.0) Mean Corpuscular Volume 94 fL (79-100) Mean Corpuscular Hemoglobin 32 pg (25-35) Mean Corpuscular Hemoglobin Concent 34 g/dL (31-37) Red Cell Distribution Width 14.3 % (11.5-14.5) Platelet Count 103 x10^3/uL (140-400) Neutrophils (%) (Auto) 77 % (31-73) Lymphocytes (%) (Auto) 16 % (24-48) Monocytes (%) (Auto) 6 % (0-9) Eosinophils (%) (Auto) 0 % (0-3) Basophils (%) (Auto) 0 % (0-3) Neutrophils # (Auto) 6.7 x10^3uL (1.8-7.7) Lymphocytes # (Auto) 1.3 x10^3/uL (1.0-4.8) Monocytes # (Auto) 0.5 x10^3/uL (0.0-1.1) Eosinophils # (Auto) 0.0 x10^3/uL (0.0-0.7) Basophils # (Auto) 0.0 x10^3/uL (0.0-0.2) Sodium Level 143 mmol/L (136-145) Potassium Level 4.3 mmol/L (3.5-5.1) Chloride Level 108 mmol/L (98-107) Carbon Dioxide Level 25 mmol/L (21-32) Anion Gap 10 (6-14) Blood Urea Nitrogen 22 mg/dL (8-26) Creatinine 1.2 mg/dL (0.7-1.3) Estimated GFR (Cockcroft-Gault) 73.8 BUN/Creatinine Ratio 18 (6-20) Glucose Level 228 mg/dL (70-99) Calcium Level 8.0 mg/dL (8.5-10.1) Total Bilirubin 3.2 mg/dL (0.2-1.0) Aspartate Amino Transf (AST/SGOT) 31 U/L (15-37) Alanine Aminotransferase (ALT/SGPT) 31 U/L (16-63) Alkaline Phosphatase 249 U/L (46-116) Troponin I Quantitative 0.056 ng/mL (0.000-0.055) Total Protein 5.9 g/dL (6.4-8.2) Albumin 1.8 g/dL (3.4-5.0) Albumin/Globulin Ratio 0.4 (1.0-1.7) Micro Microbiology 11/30/18 Blood Culture - Final, Complete Objective Assessment G neg maribel bacteremia Leukocytosis Cholengiocarcinoma Jaundice Debility Plan Plan of Care cefepime cont levaquin d/c vanc supportive care check cultures d/w pt and DIAZ,MIGUEL Carballo MD Dec 01, 2018 11:34
[2018-12-01] MEDS ORDERED: VANCOMYCIN 1 GM in IV NORMAL SALINE 250ML 250 ML IV SCH (12:00)
[2018-12-01] MEDS ORDERED: VANCOMYCIN PER PHARMACY MC PRN (12:30)
--- NOTE | 2018-12-01 12:36 | PDOC ---
PROGRESS NOTES Chief Complaint Chief Complaint Acute febrile illness secondary to gram-negative rods bacteremia Leukocytosis suspicious for underlying infection causing febrile illness History of recently diagnosed metastatic liver cancer Mild gap acidosis improved Elevated troponin secondary to most likely infectious burden with demand ischemia. Patient denies angina-type of symptoms no chest pain hemodynamically stable, troponin trending down Current smoker, patient's says that he has not smoked in 5 days Lactic acid most likely secondary to low effective circulatory volume acute renal failure 2 to vasometer Marijuana use History of Present Illness History of Present Illness Patient laying in bed much better today compared to yesterday he is mentating better and able to tell me that the palliative care consult has been explored. I have encourage him to pursue this option since it's appropriate and if he improves his functional status he might be able to receive palliative chemotherapy even by Dr. Casillas. His recommendations are greatly appreciated and noted. Plan of care explained in Detail all concerns address to the best of my abilities Vitals Vitals Vital Signs Date Time Temp Pulse Resp B/P (MAP) Pulse Ox O2 Delivery O2 Flow Rate FiO2 12/01/18 11:24 98.3 78 17 171/76 (107) 99 Room Air 98.3 Physical Exam Lungs: Clear Labs LABS Laboratory Tests Test 11/30/18 13:25 11/30/18 14:05 12/01/18 05:05 Urine Collection Type Unknown Urine Color Lissa Urine Clarity Clear Urine pH 5.5 Urine Specific [place] 1.020 Urine Protein 100 mg/dL (NEG-TRACE) Urine Glucose (UA) Negative mg/dL (NEG) Urine Ketones (Stick) Trace mg/dL (NEG) Urine Blood Negative (NEG) Urine Nitrite Negative (NEG) Urine Bilirubin Moderate (NEG) Urine Urobilinogen Dipstick 1.0 mg/dL (0.2 mg/dL) Urine Leukocyte Esterase Small (NEG) Urine RBC 1-2 /HPF (0-2) Urine WBC 1-4 /HPF (0-4) Urine Squamous Epithelial Cells Few /LPF Urine Amorphous Sediment Present /HPF Urine Bacteria Few /HPF (0-FEW) Urine Hyaline Casts Few /HPF Urine Mucus Slight /LPF Lactic Acid Level 1.4 mmol/L (0.4-2.0) White Blood Count 8.6 x10^3/uL (4.0-11.0) Red Blood Count 2.86 x10^6/uL (4.30-5.70) Hemoglobin 9.1 g/dL (13.0-17.5) Hematocrit 26.9 % (39.0-53.0) Mean Corpuscular Volume 94 fL (79-100) Mean Corpuscular Hemoglobin 32 pg (25-35) Mean Corpuscular Hemoglobin Concent 34 g/dL (31-37) Red Cell Distribution Width 14.3 % (11.5-14.5) Platelet Count 103 x10^3/uL (140-400) Neutrophils (%) (Auto) 77 % (31-73) Lymphocytes (%) (Auto) 16 % (24-48) Monocytes (%) (Auto) 6 % (0-9) Eosinophils (%) (Auto) 0 % (0-3) Basophils (%) (Auto) 0 % (0-3) Neutrophils # (Auto) 6.7 x10^3uL (1.8-7.7) Lymphocytes # (Auto) 1.3 x10^3/uL (1.0-4.8) Monocytes # (Auto) 0.5 x10^3/uL (0.0-1.1) Eosinophils # (Auto) 0.0 x10^3/uL (0.0-0.7) Basophils # (Auto) 0.0 x10^3/uL (0.0-0.2) Sodium Level 143 mmol/L (136-145) Potassium Level 4.3 mmol/L (3.5-5.1) Chloride Level 108 mmol/L (98-107) Carbon Dioxide Level 25 mmol/L (21-32) Anion Gap 10 (6-14) Blood Urea Nitrogen 22 mg/dL (8-26) Creatinine 1.2 mg/dL (0.7-1.3) Estimated GFR (Cockcroft-Gault) 73.8 BUN/Creatinine Ratio 18 (6-20) Glucose Level 228 mg/dL (70-99) Calcium Level 8.0 mg/dL (8.5-10.1) Total Bilirubin 3.2 mg/dL (0.2-1.0) Aspartate Amino Transf (AST/SGOT) 31 U/L (15-37) Alanine Aminotransferase (ALT/SGPT) 31 U/L (16-63) Alkaline Phosphatase 249 U/L (46-116) Troponin I Quantitative 0.056 ng/mL (0.000-0.055) Total Protein 5.9 g/dL (6.4-8.2) Albumin 1.8 g/dL (3.4-5.0) Albumin/Globulin Ratio 0.4 (1.0-1.7) Review of Systems Review of Systems Pertinent as per history of present illness otherwise 14 point review of system is negative Assessment and Plan Assessmemt and Plan Problems Medical Problems: (1) Sepsis Status: Acute Comment Review of Relevant I have reviewed the following items theo (where applicable) has been applied. Labs Laboratory Tests Test 11/30/18 10:03 11/30/18 10:10 11/30/18 13:25 11/30/18 14:05 White Blood Count 17.3 x10^3/uL (4.0-11.0) Red Blood Count 3.93 x10^6/uL (4.30-5.70) Hemoglobin 12.1 g/dL (13.0-17.5) Hematocrit 36.8 % (39.0-53.0) Mean Corpuscular Volume 94 fL (79-100) Mean Corpuscular Hemoglobin 31 pg (25-35) Mean Corpuscular Hemoglobin Concent 33 g/dL (31-37) Red Cell Distribution Width 14.0 % (11.5-14.5) Platelet Count 181 x10^3/uL (140-400) Neutrophils (%) (Auto) 96 % (31-73) Lymphocytes (%) (Auto) 3 % (24-48) Monocytes (%) (Auto) 1 % (0-9) Eosinophils (%) (Auto) 0 % (0-3) Basophils (%) (Auto) 0 % (0-3) Neutrophils # (Auto) 16.6 x10^3uL (1.8-7.7) Lymphocytes # (Auto) 0.5 x10^3/uL (1.0-4.8) Monocytes # (Auto) 0.2 x10^3/uL (0.0-1.1) Eosinophils # (Auto) 0.0 x10^3/uL (0.0-0.7) Basophils # (Auto) 0.0 x10^3/uL (0.0-0.2) Segmented Neutrophils % 73 % (35-66) Band Neutrophils % 17 % (0-9) Lymphocytes % 3 % (24-48) Monocytes % 4 % (0-10) Metamyelocytes % 3 % (0-0) Toxic Vacuolation Present Platelet Estimate Adequate (ADEQUATE) Prothrombin Time 17.9 SEC (11.7-14.0) Prothromb Time International Ratio 1.5 (0.8-1.1) Activated Partial Thromboplast Time 40 SEC (24-38) Sodium Level 139 mmol/L (136-145) Potassium Level 3.8 mmol/L (3.5-5.1) Chloride Level 101 mmol/L (98-107) Carbon Dioxide Level 25 mmol/L (21-32) Anion Gap 13 (6-14) Blood Urea Nitrogen 27 mg/dL (8-26) Creatinine 1.7 mg/dL (0.7-1.3) Estimated GFR (Cockcroft-Gault) 49.3 BUN/Creatinine Ratio 16 (6-20) Glucose Level 284 mg/dL (70-99) Lactic Acid Level 2.8 mmol/L (0.4-2.0) 1.4 mmol/L (0.4-2.0) Calcium Level 9.4 mg/dL (8.5-10.1) Total Bilirubin 4.7 mg/dL (0.2-1.0) Aspartate Amino Transf (AST/SGOT) 43 U/L (15-37) Alanine Aminotransferase (ALT/SGPT) 41 U/L (16-63) Alkaline Phosphatase 373 U/L (46-116) Ammonia 14 mcmol/L (11-34) Troponin I Quantitative 0.144 ng/mL (0.000-0.055) Total Protein 7.9 g/dL (6.4-8.2) Albumin 2.5 g/dL (3.4-5.0) Albumin/Globulin Ratio 0.5 (1.0-1.7) Amylase Level 13 U/L (25-115) Lipase 36 U/L (73-393) Influenza Type A Antigen Negative (NEGATIVE) Influenza Type B Antigen Negative (NEGATIVE) Urine Collection Type Unknown Urine Color Lissa Urine Clarity Clear Urine pH 5.5 Urine Specific [place] 1.020 Urine Protein 100 mg/dL (NEG-TRACE) Urine Glucose (UA) Negative mg/dL (NEG) Urine Ketones (Stick) Trace mg/dL (NEG) Urine Blood Negative (NEG) Urine Nitrite Negative (NEG) Urine Bilirubin Moderate (NEG) Urine Urobilinogen Dipstick 1.0 mg/dL (0.2 mg/dL) Urine Leukocyte Esterase Small (NEG) Urine RBC 1-2 /HPF (0-2) Urine WBC 1-4 /HPF (0-4) Urine Squamous Epithelial Cells Few /LPF Urine Amorphous Sediment Present /HPF Urine Bacteria Few /HPF (0-FEW) Urine Hyaline Casts Few /HPF Urine Mucus Slight /LPF Test 12/01/18 05:05 White Blood Count 8.6 x10^3/uL (4.0-11.0) Red Blood Count 2.86 x10^6/uL (4.30-5.70) Hemoglobin 9.1 g/dL (13.0-17.5) Hematocrit 26.9 % (39.0-53.0) Mean Corpuscular Volume 94 fL (79-100) Mean Corpuscular Hemoglobin 32 pg (25-35) Mean Corpuscular Hemoglobin Concent 34 g/dL (31-37) Red Cell Distribution Width 14.3 % (11.5-14.5) Platelet Count 103 x10^3/uL (140-400) Neutrophils (%) (Auto) 77 % (31-73) Lymphocytes (%) (Auto) 16 % (24-48) Monocytes (%) (Auto) 6 % (0-9) Eosinophils (%) (Auto) 0 % (0-3) Basophils (%) (Auto) 0 % (0-3) Neutrophils # (Auto) 6.7 x10^3uL (1.8-7.7) Lymphocytes # (Auto) 1.3 x10^3/uL (1.0-4.8) Monocytes # (Auto) 0.5 x10^3/uL (0.0-1.1) Eosinophils # (Auto) 0.0 x10^3/uL (0.0-0.7) Basophils # (Auto) 0.0 x10^3/uL (0.0-0.2) Sodium Level 143 mmol/L (136-145) Potassium Level 4.3 mmol/L (3.5-5.1) Chloride Level 108 mmol/L (98-107) Carbon Dioxide Level 25 mmol/L (21-32) Anion Gap 10 (6-14) Blood Urea Nitrogen 22 mg/dL (8-26) Creatinine 1.2 mg/dL (0.7-1.3) Estimated GFR (Cockcroft-Gault) 73.8 BUN/Creatinine Ratio 18 (6-20) Glucose Level 228 mg/dL (70-99) Calcium Level 8.0 mg/dL (8.5-10.1) Total Bilirubin 3.2 mg/dL (0.2-1.0) Aspartate Amino Transf (AST/SGOT) 31 U/L (15-37) Alanine Aminotransferase (ALT/SGPT) 31 U/L (16-63) Alkaline Phosphatase 249 U/L (46-116) Troponin I Quantitative 0.056 ng/mL (0.000-0.055) Total Protein 5.9 g/dL (6.4-8.2) Albumin 1.8 g/dL (3.4-5.0) Albumin/Globulin Ratio 0.4 (1.0-1.7) Laboratory Tests Test 11/30/18 13:25 11/30/18 14:05 12/01/18 05:05 Urine Collection Type Unknown Urine Color Lissa Urine Clarity Clear Urine pH 5.5 Urine Specific [place] 1.020 Urine Protein 100 mg/dL (NEG-TRACE) Urine Glucose (UA) Negative mg/dL (NEG) Urine Ketones (Stick) Trace mg/dL (NEG) Urine Blood Negative (NEG) Urine Nitrite Negative (NEG) Urine Bilirubin Moderate (NEG) Urine Urobilinogen Dipstick 1.0 mg/dL (0.2 mg/dL) Urine Leukocyte Esterase Small (NEG) Urine RBC 1-2 /HPF (0-2) Urine WBC 1-4 /HPF (0-4) Urine Squamous Epithelial Cells Few /LPF Urine Amorphous Sediment Present /HPF Urine Bacteria Few /HPF (0-FEW) Urine Hyaline Casts Few /HPF Urine Mucus Slight /LPF Lactic Acid Level 1.4 mmol/L (0.4-2.0) White Blood Count 8.6 x10^3/uL (4.0-11.0) Red Blood Count 2.86 x10^6/uL (4.30-5.70) Hemoglobin 9.1 g/dL (13.0-17.5) Hematocrit 26.9 % (39.0-53.0) Mean Corpuscular Volume 94 fL (79-100) Mean Corpuscular Hemoglobin 32 pg (25-35) Mean Corpuscular Hemoglobin Concent 34 g/dL (31-37) Red Cell Distribution Width 14.3 % (11.5-14.5) Platelet Count 103 x10^3/uL (140-400) Neutrophils (%) (Auto) 77 % (31-73) Lymphocytes (%) (Auto) 16 % (24-48) Monocytes (%) (Auto) 6 % (0-9) Eosinophils (%) (Auto) 0 % (0-3) Basophils (%) (Auto) 0 % (0-3) Neutrophils # (Auto) 6.7 x10^3uL (1.8-7.7) Lymphocytes # (Auto) 1.3 x10^3/uL (1.0-4.8) Monocytes # (Auto) 0.5 x10^3/uL (0.0-1.1) Eosinophils # (Auto) 0.0 x10^3/uL (0.0-0.7) Basophils # (Auto) 0.0 x10^3/uL (0.0-0.2) Sodium Level 143 mmol/L (136-145) Potassium Level 4.3 mmol/L (3.5-5.1) Chloride Level 108 mmol/L (98-107) Carbon Dioxide Level 25 mmol/L (21-32) Anion Gap 10 (6-14) Blood Urea Nitrogen 22 mg/dL (8-26) Creatinine 1.2 mg/dL (0.7-1.3) Estimated GFR (Cockcroft-Gault) 73.8 BUN/Creatinine Ratio 18 (6-20) Glucose Level 228 mg/dL (70-99) Calcium Level 8.0 mg/dL (8.5-10.1) Total Bilirubin 3.2 mg/dL (0.2-1.0) Aspartate Amino Transf (AST/SGOT) 31 U/L (15-37) Alanine Aminotransferase (ALT/SGPT) 31 U/L (16-63) Alkaline Phosphatase 249 U/L (46-116) Troponin I Quantitative 0.056 ng/mL (0.000-0.055) Total Protein 5.9 g/dL (6.4-8.2) Albumin 1.8 g/dL (3.4-5.0) Albumin/Globulin Ratio 0.4 (1.0-1.7) Microbiology 11/30/18 Blood Culture - Final, Complete Medications Current Medications Sodium Chloride 1,000 ml @ 1,000 mls/hr 1X ONCE IV Last administered on at 11:12; Start 11/30/18 at 11:15; Stop 11/30/18 at 12:14; Status DC Levofloxacin/ Dextrose 150 ml @ 100 mls/hr 1X ONCE IV Last administered on at 11:34; Start 11/30/18 at 11:15; Stop 11/30/18 at 12:44; Status DC Vancomycin HCl 250 ml @ 250 mls/hr 1X ONCE IV ; Start 11/30/18 at 11:15; Stop 11/30/18 at 12:14; Status UNV Vancomycin HCl 1.5 gm/Sodium Chloride 500 ml @ 250 mls/hr 1X ONCE IV Last administered on 11/30/18at 12:07; Start 11/30/18 at 11:15; Stop 11/30/18 at 13:14 ; Status DC Sodium Chloride 1,000 ml @ 1,000 mls/hr 1X ONCE IV Last administered on at 12:08; Start 11/30/18 at 12:00; Stop 11/30/18 at 12:59; Status DC Ondansetron HCl (Zofran) 4 mg PRN Q8HRS PRN IV NAUSEA/VOMITING; Start 11/30/18 at 12:00; Stop 12/01/18 at 11:59; Status DC Morphine Sulfate (Morphine Sulfate) 2 mg PRN Q2HR PRN IV PAIN; Start 11/30/18 at 12:00; Stop 12/01/18 at 11:59; Status DC Sodium Chloride 1,000 ml @ 75 mls/hr [id number] IV Last administered on at 02:10; Start 11/30/18 at 12:00; Stop 12/01/18 at 11:59; Status DC Furosemide (Lasix) 20 mg DAILY PO ; Start 11/30/18 at 16:00 Pregabalin (Lyrica) 50 mg BID PO Last administered on 11/30/18at 21:47; Start at 21:00 Tamsulosin HCl (Flomax) 0.4 mg DAILY PO Last administered on 12/01/18 09:15; Start 11/30/18 at 16:00 Non-Formulary Medication (Amlodipine Bes/ Olmesartan Med (Sandra 5-40 Mg Tablet)) 1 tab DAILY PO ; Start 12/01/18 at 09:00; Status UNV Diazepam (Valium) 20 mg BID PO Last administered on 12/01/18 09:15; Start at 21:00 Hydralazine HCl (Apresoline) 50 mg TID PO Last administered on 12/01/18 09:15 ; Start 11/30/18 at 21:00 Ondansetron HCl (Zofran Odt) 8 mg Q8HRS PO ; Start 11/30/18 at 16:00; Stop 11/30 at 16:00; Status DC Oxycodone HCl (Roxicodone) 10 mg DAILY@1400 PO Last administered on 11/30/18at 15:40; Start 11/30/18 at 16:00 Oxycodone HCl (Roxicodone) 20 mg BID@0800,2000 PO Last administered on 09:14; Start 11/30/18 at 21:00 Non-Formulary Medication (Oxycodone Hcl (Oxycodone Hcl Immed.release)) 20 mg DAILY08 PRN PO PAIN; Start 11/30/18 at 15:15; Status UNV Pantoprazole Sodium (Protonix) 40 mg DAILYAC PO Last administered on 12/01/18 07:54; Start 11/30/18 at 16:00 Quetiapine Fumarate (SEROquel) 50 mg QHS PO Last administered on 11/30/18 21: 00; Start 11/30/18 at 21:00 Sertraline HCl (Zoloft) 100 mg DAILY PO Last administered on 12/01/18 09:15; Start 11/30/18 at 16:00 Tizanidine HCl (Zanaflex) 4 mg Q8HRS PO Last administered on 12/01/18 05:43; Start 11/30/18 at 22:00 Amlodipine Besylate (Norvasc) 5 mg DAILY PO Last administered on 3/20/19at 09: 15; Start 11/30/18 at 16:00 Losartan Potassium (Cozaar) 100 mg DAILY PO Last administered on 12/01/18at 09: 14; Start 11/30/18 at 16:00 Ondansetron HCl (Zofran Odt) 8 mg PRN Q8HRS PRN PO NAUSEA/VOMITING; Start 11/30 at 16:00 Sodium Chloride 1,000 ml @ 1,000 mls/hr 1X ONCE IV Last administered on at 15:42; Start 11/30/18 at 16:00; Stop 11/30/18 at 16:59; Status DC Levofloxacin/ Dextrose 100 ml @ 100 mls/hr Q24H IV ; Start 12/01/18 at 12:30; Stop 12/01/18 at 12:30; Status DC Vancomycin HCl (Vanco Per Pharmacy) 1 each PRN DAILY PRN MC SEE COMMENTS Last administered on 11/30/18at 12:07; Start 12/01/18 at 12:30; Stop 12/01/18 at 12:30 ; Status DC Vancomycin HCl 1 gm/Sodium Chloride 250 ml @ 250 mls/hr Q24H IV ; Start at 12:00; Stop 12/01/18 at 12:00; Status DC Vancomycin HCl (Vancomycin Trough Level) 1 each 1X ONCE MC ; Start 12/02/18 at 11:30; Stop 12/02/18 at 11:31; Status Cancel Levofloxacin (Levaquin) 750 mg DAILY06 PO Last administered on 12/01/18at 10:22 ; Start 12/01/18 at 09:00 Magnesium Hydroxide (Milk Of Magnesia) 2,400 mg 1X ONCE PO Last administered on 12/01/18at 10:23; Start 12/01/18 at 10:30; Stop 12/01/18 at 10:31; Status DC Cefepime HCl (Maxipime) 2 gm Q12HR IVP ; Start 12/01/18 at 11:30 Active Scripts Active Reported Oxycodone Hcl Immed.release (Oxycodone Hcl) 10 Mg Tablet 10 Mg PO DAILY AT 1400 PRN Oxycodone Hcl Immed.release (Oxycodone Hcl) 10 Mg Tablet 20 Mg PO DAILY DAILY AT 2000 Oxycodone Hcl Immed.release (Oxycodone Hcl) 10 Mg Tablet 20 Mg PO DAILY08 PRN Zanaflex (Tizanidine Hcl) 4 Mg Tablet 1 Tab PO Q8HRS Seroquel (Quetiapine Fumarate) 50 Mg Tablet 1 Tab PO QHS Zofran (Ondansetron Hcl) 8 Mg Tablet 1 Tab PO Q8HRS Sertraline Hcl 100 Mg Tablet 100 Mg PO DAILY Protonix (Pantoprazole Sodium) 20 Mg Tablet.dr 40 Mg PO DAILY Hydralazine Hcl 50 Mg Tablet 1 Tab PO TID Sandra 5-40 Mg Tablet (Amlodipine Bes/Olmesartan Med) 1 Each Tablet 1 Tab PO DAILY Flomax (Tamsulosin Hcl) 0.4 Mg Cap.er.24h 1 Cap PO DAILY Lyrica (Pregabalin) 50 Mg Capsule 1 Cap PO BID Lasix (Furosemide) 20 Mg Tablet 1 Tab PO DAILY Valium (Diazepam) 10 Mg Tablet 20 Mg PO BID Vitals/I & O Vital Sign - Last 24 Hours 11/30/18 11/30/18 11/30/18 11/30/18 13:00 14:00 15:00 15:40 Pulse 79 71 Resp 18 18 16 B/P (MAP) 127/56 (79) 145/71 (95) Pulse Ox 100 98 99 O2 Delivery Room Air Room Air Room Air Room Air 11/30/18 11/30/18 11/30/18 11/30/18 15:41 15:41 16:00 16:00 Temp 97.6 97.6 Pulse 75 75 73 Resp 16 B/P (MAP) 155/71 155/71 149/65 (93) Pulse Ox 98 O2 Delivery Room Air Room Air 11/30/18 11/30/18 11/30/18 11/30/18 16:49 17:00 18:00 19:00 Pulse 72 71 71 Resp 16 16 20 B/P (MAP) 138/62 (87) 139/68 (91) 140/65 (90) Pulse Ox 98 98 97 98 O2 Delivery Room Air Room Air Room Air Room Air 11/30/18 11/30/18 11/30/18 11/30/18 20:00 20:00 21:00 21:17 Temp 98.2 98.2 Pulse 81 74 72 Resp 18 20 B/P (MAP) 142/69 (93) 152/72 (98) 152/72 Pulse Ox 98 98 O2 Delivery Room Air Room Air Room Air 11/30/18 11/30/18 11/30/18 11/30/18 21:18 22:00 22:42 23:00 Pulse 78 63 Resp 12 18 18 18 B/P (MAP) 163/74 (103) 106/56 (73) Pulse Ox 98 98 99 O2 Delivery Room Air Room Air Room Air 11/30/18 11/30/18 12/01/18 12/01/18 23:59 23:59 01:00 02:00 Temp 98.3 98.3 Pulse 94 65 68 Resp 20 18 20 B/P (MAP) 107/63 (78) 105/54 (71) 125/63 (83) Pulse Ox 99 97 99 O2 Delivery Room Air Room Air Room Air Room Air 12/01/18 12/01/18 12/01/18 12/01/18 03:00 04:00 04:00 05:00 Pulse 72 79 73 Resp 18 20 18 B/P (MAP) 138/72 (94) 152/68 (96) 149/69 (95) Pulse Ox 99 99 98 O2 Delivery Room Air Room Air Room Air Room Air 12/01/18 12/01/18 12/01/18 12/01/18 06:02 07:00 08:00 08:00 Temp 99.7 99.7 Pulse 71 76 77 Resp 18 16 16 B/P (MAP) 153/69 (97) 166/73 (104) 175/75 (108) Pulse Ox 99 98 98 O2 Delivery Room Air Room Air Room Air Room Air 12/01/18 12/01/18 12/01/18 12/01/18 09:00 09:14 09:14 09:15 Pulse 82 82 82 Resp 18 18 B/P (MAP) 169/77 (107) 169/77 169/77 Pulse Ox 99 99 O2 Delivery Room Air Room Air 12/01/18 12/01/18 12/01/18 12/01/18 09:15 10:23 10:37 11:24 Temp 98.3 98.3 Pulse 82 80 78 Resp 17 B/P (MAP) 169/77 158/58 (91) 171/76 (107) Pulse Ox 99 99 O2 Delivery Room Air Room Air Intake and Output 11/30/18 11/30/18 12/01/18 14:59 22:59 06:59 Intake Total 2650 ml 1000 ml 1079 ml Output Total 280 ml 685 ml 805 ml Balance 2370 ml 315 ml 274 ml Nutrition Consultation Dietary Evaluation: Recommendations by RD: Increase Calorie Intake, Protein supplementation Comments: Recommend Ensure Enlive-strawberry TID Expected Outcomes/Goals: P.O. intake to meet >75% estimated needs Interpretation of weight loss: >5% in 1 month Malnutrition Findings: Body Fat Depletion (Non Severe: Mod to Severe Weight Status: Appropriate FABI ABURTO MD Dec 01, 2018 12:36
[2018-12-01] MEDS: CEFEPIME HCL IV Push 2 GM VIAL. IVP SCH ×2 (13:55→20:27)
--- NOTE | 2018-12-01 15:19 | NUR ---
SW following pt. Spoke with Palliative care and family is requesting hospice services in the home. SW met with pt's significant other, Naty, phone: [phone] and discussed options. Naty agreeable with [facility] and reported they will need hospital bed and bed side table. Spoke with Arabella at [facility] and faxed pt's face sheet so they can run benefits. SW will await for benefit and proceed accordingly. Discussed with RN.
[2018-12-01] MEDS ORDERED: BISACODYL 5 MG TABLET.DR. PO PRN (17:45)
[2018-12-01] MEDS: QUEtiapine 25 MG TABLET. PO SCH (20:25)
--- NOTE | 2018-12-01 23:34 | CONS ---
DATE OF CONSULTATION: 12/01/2018 REQUESTING PHYSICIAN: Dr. Almendarez. REASON FOR CONSULTATION: Gram-negative maribel bacteremia. HISTORY OF PRESENT ILLNESS: This is a 63-year-old -[place] gentleman with history of cholangiocarcinoma, who presented with fever and generalized weakness. The patient recently 3 days ago, the patient had a Port-A-Cath placement done here and the patient was discharged outpatient and then he came back with weakness and fever. The patient has recent diagnosis of cholangiocarcinoma and a port was placed for chemotherapy. The patient also has had severe jaundice and the patient had internal stenting done. The patient's blood culture is positive with gram-negative maribel, hence consultation. The patient is receiving Levaquin and vancomycin. The patient also had a Palliative Care consult done. In fact, also he is too weak to get chemotherapy, but he still wants to get better and get chemotherapy. The patient denies any nausea, vomiting, diarrhea. Denies any chest pain, shortness of breath, some abdominal discomfort, but he blames it on he ate too much. Denies any headache or visual symptoms. PAST MEDICAL HISTORY: Positive for cholangiocarcinoma diagnosis by having biopsy in 10/2018. The patient also had internal stent placement done, also has history of hypertension, benign prostatic hypertrophy, congestive heart failure, depression, and anxiety disorder. SOCIAL HISTORY: Positive for smoking. Negative for alcohol use or drug use. Lives with significant other. ALLERGIES: LISTED ALLERGIC TO PENICILLIN, HAD ITCHING WHEN HE WAS YOUNG. He does not remember if he has taken any amoxicillin or Augmentin afterwards. CURRENT MEDICATIONS: Reviewed. REVIEW OF SYSTEMS: As per HPI. All other systems reviewed are negative. PHYSICAL EXAMINATION: GENERAL: Alert, oriented gentleman, not in any distress. VITAL SIGNS: Stable, afebrile. HEENT: NAD. NECK: Supple, no JVP, no lymphadenopathy. LUNGS: Clear. HEART: S1, S2 regular. ABDOMEN: Benign. Port-A-Cath site is unremarkable. EXTREMITIES: No edema or cyanosis. NEUROLOGICAL: The patient is alert, awake, no focal neurologic deficit. SKIN: The patient does have jaundice. LABORATORY DATA: White count was 17,000 yesterday, today is down to 8.6. BUN and creatinine is normal. His lactic acid was 2.8. Total bilirubin is 4.7, AST 43, ALT 41. Influenza screen negative. Urinalysis negative. Chest x-ray unremarkable. IMPRESSION: 1. Gram-negative maribel bacteremia, most likely from his cholangiocarcinoma area with possibly ascending cholangitis. 2. Status post recent Port-A-Cath placement done. 3. Cholangiocarcinoma with mets to the liver. The patient has been deemed unresectable. 4. Weakness. 5. Jaundice. 6. History of leukocytosis. 7. History of hypertension. RECOMMENDATIONS: Would start cefepime. Continue Levaquin, discontinue vancomycin. Supportive care. Discussed with the patient and the or significant other at the bedside. We will await identification of the organism and decide further management. Thank you very much Dr. Almendarez for giving me the opportunity to participate in this patient's care. MIGUEL DIAZ MD DR: JOHANNY/nts JOB#: [id number] / [id number]
[2018-12-02 03:20] VITALS: BP 162/74
[2018-12-02] MEDS: tiZANidine 4 MG TABLET. PO SCH ×2 (06:18→15:03)
[2018-12-02 07:00] VITALS: BP 137/64
--- NOTE | 2018-12-02 08:12 | PDOC ---
PROGRESS NOTES Chief Complaint Chief Complaint Acute febrile illness secondary to gram-negative rods bacteremia Leukocytosis suspicious for underlying infection causing febrile illness History of recently diagnosed metastatic liver cancer Mild gap acidosis improved Elevated troponin secondary to most likely infectious burden with demand ischemia. Patient denies angina-type of symptoms no chest pain hemodynamically stable, troponin trending down Current smoker, patient's says that he has not smoked in 5 days Lactic acid most likely secondary to low effective circulatory volume acute renal failure 2 to vasomotor nephropathy History of Present Illness History of Present Illness Patient laying in bed much better today compared to yesterday he is mentating better and able to tell me that the palliative care consult has been explored and he and his would like to discharge home with hospice. Plan of care explained in Detail all concerns address to the best of my abilities Vitals Vitals Vital Signs Date Time Temp Pulse Resp B/P (MAP) Pulse Ox O2 Delivery O2 Flow Rate FiO2 12/02/18 07:00 100.0 64 16 137/64 (88) 95 Room Air 100.0 Physical Exam General: Cooperative, mild distress Heart: Regular rate Lungs: Clear Abdomen: Normal bowel sounds Extremities: No clubbing, No cyanosis Skin: No rashes, No breakdown Assessment and Plan Assessmemt and Plan Problems Medical Problems: (1) Sepsis Status: Acute Comment Review of Relevant I have reviewed the following items theo (where applicable) has been applied. Labs Laboratory Tests Test 11/30/18 10:03 11/30/18 10:10 11/30/18 13:25 11/30/18 14:05 White Blood Count 17.3 x10^3/uL (4.0-11.0) Red Blood Count 3.93 x10^6/uL (4.30-5.70) Hemoglobin 12.1 g/dL (13.0-17.5) Hematocrit 36.8 % (39.0-53.0) Mean Corpuscular Volume 94 fL (79-100) Mean Corpuscular Hemoglobin 31 pg (25-35) Mean Corpuscular Hemoglobin Concent 33 g/dL (31-37) Red Cell Distribution Width 14.0 % (11.5-14.5) Platelet Count 181 x10^3/uL (140-400) Neutrophils (%) (Auto) 96 % (31-73) Lymphocytes (%) (Auto) 3 % (24-48) Monocytes (%) (Auto) 1 % (0-9) Eosinophils (%) (Auto) 0 % (0-3) Basophils (%) (Auto) 0 % (0-3) Neutrophils # (Auto) 16.6 x10^3uL (1.8-7.7) Lymphocytes # (Auto) 0.5 x10^3/uL (1.0-4.8) Monocytes # (Auto) 0.2 x10^3/uL (0.0-1.1) Eosinophils # (Auto) 0.0 x10^3/uL (0.0-0.7) Basophils # (Auto) 0.0 x10^3/uL (0.0-0.2) Segmented Neutrophils % 73 % (35-66) Band Neutrophils % 17 % (0-9) Lymphocytes % 3 % (24-48) Monocytes % 4 % (0-10) Metamyelocytes % 3 % (0-0) Toxic Vacuolation Present Platelet Estimate Adequate (ADEQUATE) Prothrombin Time 17.9 SEC (11.7-14.0) Prothromb Time International Ratio 1.5 (0.8-1.1) Activated Partial Thromboplast Time 40 SEC (24-38) Sodium Level 139 mmol/L (136-145) Potassium Level 3.8 mmol/L (3.5-5.1) Chloride Level 101 mmol/L (98-107) Carbon Dioxide Level 25 mmol/L (21-32) Anion Gap 13 (6-14) Blood Urea Nitrogen 27 mg/dL (8-26) Creatinine 1.7 mg/dL (0.7-1.3) Estimated GFR (Cockcroft-Gault) 49.3 BUN/Creatinine Ratio 16 (6-20) Glucose Level 284 mg/dL (70-99) Lactic Acid Level 2.8 mmol/L (0.4-2.0) 1.4 mmol/L (0.4-2.0) Calcium Level 9.4 mg/dL (8.5-10.1) Total Bilirubin 4.7 mg/dL (0.2-1.0) Aspartate Amino Transf (AST/SGOT) 43 U/L (15-37) Alanine Aminotransferase (ALT/SGPT) 41 U/L (16-63) Alkaline Phosphatase 373 U/L (46-116) Ammonia 14 mcmol/L (11-34) Troponin I Quantitative 0.144 ng/mL (0.000-0.055) Total Protein 7.9 g/dL (6.4-8.2) Albumin 2.5 g/dL (3.4-5.0) Albumin/Globulin Ratio 0.5 (1.0-1.7) Amylase Level 13 U/L (25-115) Lipase 36 U/L (73-393) Influenza Type A Antigen Negative (NEGATIVE) Influenza Type B Antigen Negative (NEGATIVE) Urine Collection Type Unknown Urine Color Lissa Urine Clarity Clear Urine pH 5.5 Urine Specific [place] 1.020 Urine Protein 100 mg/dL (NEG-TRACE) Urine Glucose (UA) Negative mg/dL (NEG) Urine Ketones (Stick) Trace mg/dL (NEG) Urine Blood Negative (NEG) Urine Nitrite Negative (NEG) Urine Bilirubin Moderate (NEG) Urine Urobilinogen Dipstick 1.0 mg/dL (0.2 mg/dL) Urine Leukocyte Esterase Small (NEG) Urine RBC 1-2 /HPF (0-2) Urine WBC 1-4 /HPF (0-4) Urine Squamous Epithelial Cells Few /LPF Urine Amorphous Sediment Present /HPF Urine Bacteria Few /HPF (0-FEW) Urine Hyaline Casts Few /HPF Urine Mucus Slight /LPF Test 11/30/18 15:17 12/01/18 05:05 Nasal Screen MRSA (PCR) Negative (Negative) White Blood Count 8.6 x10^3/uL (4.0-11.0) Red Blood Count 2.86 x10^6/uL (4.30-5.70) Hemoglobin 9.1 g/dL (13.0-17.5) Hematocrit 26.9 % (39.0-53.0) Mean Corpuscular Volume 94 fL (79-100) Mean Corpuscular Hemoglobin 32 pg (25-35) Mean Corpuscular Hemoglobin Concent 34 g/dL (31-37) Red Cell Distribution Width 14.3 % (11.5-14.5) Platelet Count 103 x10^3/uL (140-400) Neutrophils (%) (Auto) 77 % (31-73) Lymphocytes (%) (Auto) 16 % (24-48) Monocytes (%) (Auto) 6 % (0-9) Eosinophils (%) (Auto) 0 % (0-3) Basophils (%) (Auto) 0 % (0-3) Neutrophils # (Auto) 6.7 x10^3uL (1.8-7.7) Lymphocytes # (Auto) 1.3 x10^3/uL (1.0-4.8) Monocytes # (Auto) 0.5 x10^3/uL (0.0-1.1) Eosinophils # (Auto) 0.0 x10^3/uL (0.0-0.7) Basophils # (Auto) 0.0 x10^3/uL (0.0-0.2) Sodium Level 143 mmol/L (136-145) Potassium Level 4.3 mmol/L (3.5-5.1) Chloride Level 108 mmol/L (98-107) Carbon Dioxide Level 25 mmol/L (21-32) Anion Gap 10 (6-14) Blood Urea Nitrogen 22 mg/dL (8-26) Creatinine 1.2 mg/dL (0.7-1.3) Estimated GFR (Cockcroft-Gault) 73.8 BUN/Creatinine Ratio 18 (6-20) Glucose Level 228 mg/dL (70-99) Calcium Level 8.0 mg/dL (8.5-10.1) Total Bilirubin 3.2 mg/dL (0.2-1.0) Aspartate Amino Transf (AST/SGOT) 31 U/L (15-37) Alanine Aminotransferase (ALT/SGPT) 31 U/L (16-63) Alkaline Phosphatase 249 U/L (46-116) Troponin I Quantitative 0.056 ng/mL (0.000-0.055) Total Protein 5.9 g/dL (6.4-8.2) Albumin 1.8 g/dL (3.4-5.0) Albumin/Globulin Ratio 0.4 (1.0-1.7) Microbiology 11/30/18 Blood Culture - Final, Complete Medications Current Medications Sodium Chloride 1,000 ml @ 1,000 mls/hr 1X ONCE IV Last administered on at 11:12; Start 11/30/18 at 11:15; Stop 11/30/18 at 12:14; Status DC Levofloxacin/ Dextrose 150 ml @ 100 mls/hr 1X ONCE IV Last administered on at 11:34; Start 11/30/18 at 11:15; Stop 11/30/18 at 12:44; Status DC Vancomycin HCl 250 ml @ 250 mls/hr 1X ONCE IV ; Start 11/30/18 at 11:15; Stop 11/30/18 at 12:14; Status UNV Vancomycin HCl 1.5 gm/Sodium Chloride 500 ml @ 250 mls/hr 1X ONCE IV Last administered on 11/30/18at 12:07; Start 11/30/18 at 11:15; Stop 11/30/18 at 13:14 ; Status DC Sodium Chloride 1,000 ml @ 1,000 mls/hr 1X ONCE IV Last administered on at 12:08; Start 11/30/18 at 12:00; Stop 11/30/18 at 12:59; Status DC Ondansetron HCl (Zofran) 4 mg PRN Q8HRS PRN IV NAUSEA/VOMITING; Start 11/30/18 at 12:00; Stop 12/01/18 at 11:59; Status DC Morphine Sulfate (Morphine Sulfate) 2 mg PRN Q2HR PRN IV PAIN; Start 11/30/18 at 12:00; Stop 12/01/18 at 11:59; Status DC Sodium Chloride 1,000 ml @ 75 mls/hr [id number] IV Last administered on at 02:10; Start 11/30/18 at 12:00; Stop 12/01/18 at 11:59; Status DC Furosemide (Lasix) 20 mg DAILY PO ; Start 11/30/18 at 16:00 Pregabalin (Lyrica) 50 mg BID PO Last administered on 12/01/18at 20:26; Start at 21:00 Tamsulosin HCl (Flomax) 0.4 mg DAILY PO Last administered on 12/01/18at 09:15; Start 11/30/18 at 16:00 Non-Formulary Medication (Amlodipine Bes/ Olmesartan Med (Sandra 5-40 Mg Tablet)) 1 tab DAILY PO ; Start 12/01/18 at 09:00; Status UNV Diazepam (Valium) 20 mg BID PO Last administered on 12/01/18at 20:26; Start at 21:00 Hydralazine HCl (Apresoline) 50 mg TID PO Last administered on 12/01/18 20:25 ; Start 11/30/18 at 21:00 Ondansetron HCl (Zofran Odt) 8 mg Q8HRS PO ; Start 11/30/18 at 16:00; Stop 11/30 at 16:00; Status DC Oxycodone HCl (Roxicodone) 10 mg DAILY@1400 PO Last administered on 12/01/18 13:54; Start 11/30/18 at 16:00 Oxycodone HCl (Roxicodone) 20 mg BID@0800,2000 PO Last administered on 20:25; Start 11/30/18 at 21:00 Non-Formulary Medication (Oxycodone Hcl (Oxycodone Hcl Immed.release)) 20 mg DAILY08 PRN PO PAIN; Start 11/30/18 at 15:15; Status UNV Pantoprazole Sodium (Protonix) 40 mg DAILYAC PO Last administered on 12/01/18 07:54; Start 11/30/18 at 16:00 Quetiapine Fumarate (SEROquel) 50 mg QHS PO Last administered on 12/01/18 20: 25; Start 11/30/18 at 21:00 Sertraline HCl (Zoloft) 100 mg DAILY PO Last administered on 12/01/18 09:15; Start 11/30/18 at 16:00 Tizanidine HCl (Zanaflex) 4 mg Q8HRS PO Last administered on 12/02/18 06:18; Start 11/30/18 at 22:00 Amlodipine Besylate (Norvasc) 5 mg DAILY PO Last administered on 12/01/18 09: 15; Start 11/30/18 at 16:00 Losartan Potassium (Cozaar) 100 mg DAILY PO Last administered on 12/01/18 09: 14; Start 11/30/18 at 16:00 Ondansetron HCl (Zofran Odt) 8 mg PRN Q8HRS PRN PO NAUSEA/VOMITING; Start 11/30 at 16:00 Sodium Chloride 1,000 ml @ 1,000 mls/hr 1X ONCE IV Last administered on 15:42; Start 11/30/18 at 16:00; Stop 11/30/18 at 16:59; Status DC Levofloxacin/ Dextrose 100 ml @ 100 mls/hr Q24H IV ; Start 12/01/18 at 12:30; Stop 12/01/18 at 12:30; Status DC Vancomycin HCl (Vanco Per Pharmacy) 1 each PRN DAILY PRN MC SEE COMMENTS Last administered on 11/30/18at 12:07; Start 12/01/18 at 12:30; Stop 12/01/18 at 12:30 ; Status DC Vancomycin HCl 1 gm/Sodium Chloride 250 ml @ 250 mls/hr Q24H IV ; Start at 12:00; Stop 12/01/18 at 12:00; Status DC Vancomycin HCl (Vancomycin Trough Level) 1 each 1X ONCE MC ; Start 12/02/18 at 11:30; Stop 12/02/18 at 11:31; Status Cancel Levofloxacin (Levaquin) 750 mg DAILY06 PO Last administered on 12/02/18at 06:18 ; Start 12/01/18 at 09:00 Magnesium Hydroxide (Milk Of Magnesia) 2,400 mg 1X ONCE PO Last administered on 12/01/18at 10:23; Start 12/01/18 at 10:30; Stop 12/01/18 at 10:31; Status DC Cefepime HCl (Maxipime) 2 gm Q12HR IVP Last administered on 12/01/18at 20:27; Start 12/01/18 at 11:30 Bisacodyl (Dulcolax Tab) 5 mg PRN DAILY PRN PO CONSTIPATION Last administered on 12/01/18at 17:56; Start 12/01/18 at 17:45 Active Scripts Active Reported Oxycodone Hcl Immed.release (Oxycodone Hcl) 10 Mg Tablet 10 Mg PO DAILY AT 1400 PRN Oxycodone Hcl Immed.release (Oxycodone Hcl) 10 Mg Tablet 20 Mg PO DAILY DAILY AT 2000 Oxycodone Hcl Immed.release (Oxycodone Hcl) 10 Mg Tablet 20 Mg PO DAILY08 PRN Zanaflex (Tizanidine Hcl) 4 Mg Tablet 1 Tab PO Q8HRS Seroquel (Quetiapine Fumarate) 50 Mg Tablet 1 Tab PO QHS Zofran (Ondansetron Hcl) 8 Mg Tablet 1 Tab PO Q8HRS Sertraline Hcl 100 Mg Tablet 100 Mg PO DAILY Protonix (Pantoprazole Sodium) 20 Mg Tablet.dr 40 Mg PO DAILY Hydralazine Hcl 50 Mg Tablet 1 Tab PO TID Sandra 5-40 Mg Tablet (Amlodipine Bes/Olmesartan Med) 1 Each Tablet 1 Tab PO DAILY Flomax (Tamsulosin Hcl) 0.4 Mg Cap.er.24h 1 Cap PO DAILY Lyrica (Pregabalin) 50 Mg Capsule 1 Cap PO BID Lasix (Furosemide) 20 Mg Tablet 1 Tab PO DAILY Valium (Diazepam) 10 Mg Tablet 20 Mg PO BID Vitals/I & O Vital Sign - Last 24 Hours 12/01/18 12/01/18 12/01/18 12/01/18 09:00 09:14 09:14 09:15 Pulse 82 82 82 Resp 18 18 B/P (MAP) 169/77 (107) 169/77 169/77 Pulse Ox 99 99 O2 Delivery Room Air Room Air 12/01/18 12/01/18 12/01/18 12/01/18 09:15 10:23 10:37 11:24 Temp 98.3 98.3 Pulse 82 80 78 Resp 17 B/P (MAP) 169/77 158/58 (91) 171/76 (107) Pulse Ox 99 99 O2 Delivery Room Air 12/01/18 12/01/18 12/01/18 12/01/18 13:55 14:51 19:58 20:00 Temp 99.6 98.6 99.6 98.6 Pulse 78 89 74 Resp 19 20 B/P (MAP) 171/76 165/74 (104) 137/61 (86) Pulse Ox 97 97 O2 Delivery Room Air Room Air Room Air 12/01/18 12/01/18 12/01/18 12/01/18 20:25 20:25 21:25 23:27 Temp 98.3 98.3 Pulse 74 72 Resp 20 B/P (MAP) 137/61 155/74 (101) Pulse Ox 94 O2 Delivery Room Air Room Air Room Air 12/02/18 12/02/18 03:20 07:00 Temp 98.3 100.0 98.3 100.0 Pulse 84 64 Resp 20 16 B/P (MAP) 162/74 (103) 137/64 (88) Pulse Ox 94 95 O2 Delivery Room Air Room Air Intake and Output 12/01/18 12/01/18 12/02/18 14:59 22:59 06:59 Intake Total 1040 ml 750 ml Output Total 600 ml 1150 ml Balance 440 ml -400 ml Nutrition Consultation Dietary Evaluation: Recommendations by RD: Increase Calorie Intake, Protein supplementation Comments: Recommend Ensure Enlive-strawberry TID Expected Outcomes/Goals: P.O. intake to meet >75% estimated needs Interpretation of weight loss: >5% in 1 month Malnutrition Findings: Body Fat Depletion (Non Severe: Mod to Severe Weight Status: Appropriate HAILE JANE MD Dec 02, 2018 08:12
[2018-12-02] MEDS: CEFEPIME HCL IV Push 2 GM VIAL. IVP SCH (08:25)
[2018-12-02] MEDS: FUROSEMIDE 20 MG TABLET PO SCH (08:26)
[2018-12-02] MEDS: amLODIPine BESYLATE 5 MG TABLET PO SCH (08:26)
[2018-12-02] MEDS: oxyCODONE IR 5 MG TABLET PO SCH ×2 (08:26→15:04)
[2018-12-02] MEDS: PANTOPRAZOLE 40 MG TABLET.DR. PO SCH (08:26)
[2018-12-02] MEDS: LOSARTAN POTASSIUM 50 MG TABLET. PO SCH (08:27)
[2018-12-02] MEDS: PREGABALIN 50 MG CAPSULE PO SCH (08:27)
[2018-12-02] MEDS: TAMSULOSIN 0.4 MG CAP.ER.24H. PO SCH (08:27)
[2018-12-02] MEDS: SERTRALINE 50 MG TABLET. PO SCH (08:27)
[2018-12-02] MEDS: diazePAM 5 MG TABLET PO SCH (08:28)
[2018-12-02] MEDS ORDERED: DEXTROSE 50% 25 GM / 50ML DISP.SYRIN. IV PRN (08:45)
[2018-12-02 08:56] LABS: BASO # 0.1 x10^3/uL (0.0-0.2); BASO % 1 % (0-3); EOS % 0 % (0-3); HEMATOCRIT 26.1 % (39.0-53.0); HEMOGLOBIN 8.7 g/dL (13.0-17.5); LYMPH % 22 % (24-48); MEAN CORPUSCULAR HEMOGLOBIN 31 pg (25-35); MEAN CORPUSCULAR HGB CONC 33 g/dL (31-37); MEAN CORPUSCULAR VOLUME 94 fL (79-100); MONO # 0.6 x10^3/uL (0.0-1.1); MONO % 6 % (0-9); NEUT # 6.5 x10^3uL (1.8-7.7); NEUT % 71 % (31-73); PLATELET COUNT 108 x10^3/uL (140-400); RED BLOOD COUNT 2.77 x10^6/uL (4.30-5.70); RED CELL DISTRIBUTION WIDTH 14.4 % (11.5-14.5); WHITE BLOOD COUNT 9.2 x10^3/uL (4.0-11.0)
[2018-12-02 09:05] LABS: PROTHROMBIN TIME PATIENT 18.6 SEC (11.7-14.0)
[2018-12-02 09:16] LABS: ALBUMIN 1.7 g/dL (3.4-5.0); ALBUMIN/GLOBULIN RATIO 0.4 (1.0-1.7); CALCIUM 8.1 mg/dL (8.5-10.1); CREATININE 1.1 mg/dL (0.7-1.3); GFR 81.5; POTASSIUM 4.5 mmol/L (3.5-5.1); TOTAL BILIRUBIN 3.2 mg/dL (0.2-1.0); TOTAL PROTEIN 5.5 g/dL (6.4-8.2)
--- NOTE | 2018-12-02 10:06 | PDOC ---
Infectious Disease Note Subjective Subjective pt is feeling ok ROS ROS no n/v/d/sob Vital Sign Vital Signs Vital Signs Date Time Temp Pulse Resp B/P (MAP) Pulse Ox O2 Delivery O2 Flow Rate FiO2 12/02/18 08:27 64 137/64 12/02/18 08:00 Room Air 12/02/18 07:00 100.0 16 95 100.0 Physical Exam PHYSICAL EXAM GENERAL: Alert, oriented gentleman, not in any distress. VITAL SIGNS: Stable, afebrile. HEENT: NAD. NECK: Supple, no JVP, no lymphadenopathy. LUNGS: Clear. HEART: S1, S2 regular. ABDOMEN: Benign. Port-A-Cath site is unremarkable. EXTREMITIES: No edema or cyanosis. NEUROLOGICAL: The patient is alert, awake, no focal neurologic deficit. SKIN: The patient does have jaundice. Labs Lab Laboratory Tests Test 12/02/18 08:45 White Blood Count 9.2 x10^3/uL (4.0-11.0) Red Blood Count 2.77 x10^6/uL (4.30-5.70) Hemoglobin 8.7 g/dL (13.0-17.5) Hematocrit 26.1 % (39.0-53.0) Mean Corpuscular Volume 94 fL (79-100) Mean Corpuscular Hemoglobin 31 pg (25-35) Mean Corpuscular Hemoglobin Concent 33 g/dL (31-37) Red Cell Distribution Width 14.4 % (11.5-14.5) Platelet Count 108 x10^3/uL (140-400) Neutrophils (%) (Auto) 71 % (31-73) Lymphocytes (%) (Auto) 22 % (24-48) Monocytes (%) (Auto) 6 % (0-9) Eosinophils (%) (Auto) 0 % (0-3) Basophils (%) (Auto) 1 % (0-3) Neutrophils # (Auto) 6.5 x10^3uL (1.8-7.7) Lymphocytes # (Auto) 2.0 x10^3/uL (1.0-4.8) Monocytes # (Auto) 0.6 x10^3/uL (0.0-1.1) Eosinophils # (Auto) 0.0 x10^3/uL (0.0-0.7) Basophils # (Auto) 0.1 x10^3/uL (0.0-0.2) Prothrombin Time 18.6 SEC (11.7-14.0) Prothromb Time International Ratio 1.6 (0.8-1.1) Sodium Level 140 mmol/L (136-145) Potassium Level 4.5 mmol/L (3.5-5.1) Chloride Level 106 mmol/L (98-107) Carbon Dioxide Level 26 mmol/L (21-32) Anion Gap 8 (6-14) Blood Urea Nitrogen 18 mg/dL (8-26) Creatinine 1.1 mg/dL (0.7-1.3) Estimated GFR (Cockcroft-Gault) 81.5 BUN/Creatinine Ratio 16 (6-20) Glucose Level 242 mg/dL (70-99) Calcium Level 8.1 mg/dL (8.5-10.1) Total Bilirubin 3.2 mg/dL (0.2-1.0) Aspartate Amino Transf (AST/SGOT) 37 U/L (15-37) Alanine Aminotransferase (ALT/SGPT) 33 U/L (16-63) Alkaline Phosphatase 290 U/L (46-116) Troponin I Quantitative 0.052 ng/mL (0.000-0.055) Total Protein 5.5 g/dL (6.4-8.2) Albumin 1.7 g/dL (3.4-5.0) Albumin/Globulin Ratio 0.4 (1.0-1.7) Micro Microbiology 11/30/18 Blood Culture - Final, Complete Objective Assessment G neg maribel bacteremia Leukocytosis Cholengiocarcinoma Jaundice Debility Plan Plan of Care cefepime cont levaquin supportive care check cultures d/w pt and hospice decided, can be d/airam on po antibiotics MIGUEL DIAZ MD Dec 02, 2018 10:06
[2018-12-02] MEDS ORDERED: LORA2ORA7 PO (10:50)
[2018-12-02] MEDS ORDERED: MORP20SO PO (10:50)
[2018-12-02] MEDS ORDERED: LEVO750T31 PO (10:50)
[2018-12-02 11:00] VITALS: BP 122/59
--- NOTE | 2018-12-02 11:58 | NUR ---
AMBER following pt. Spoke with Aye and confirmed pt is accepted to hospice services. Consents signed with pt and significant other in room. Naty reported their home is ready for equipment to be delivered. Aye will be ordering equipment and requested for a later transport. Physician notified for dc order. Discussed with RN. Addendum: 12/02/18 at 1320 by RASHEEDA CLARK AMBER phoned and faxed orders to [facility]. AMBER arranged transportation via [employer] at 1700. Pt, pt's and RN notified.
[2018-12-02] MEDS ORDERED: INSULIN LISPRO 300 UNITS/3 ML INSULN.PEN. SQ SCH (12:00)
--- NOTE | 2018-12-02 12:23 | SNU/HH DC ---
DISCHARGE ORDERS DISCHARGE INFORMATION: DISCHARGE DATE: Dec 02, 2018 FINAL DIAGNOSIS Problems Medical Problems: (1) Sepsis Status: Acute CONDITION ON DISCHARGE: Stable CODE STATUS: Code Status: DNR/DNI HOSPICE: HOSPICE: Yes HOSPICE EVAL & TREAT: Yes POST DISCHARGE ORDERS: ACTIVITY ORDERS: Activity as tolerated WEIGHT BEARING STATUS: As tolerated DIET AFTER DISCHARGE: Regular WOUND/INCISION CARE: Keep wound/cast CDI CHECKS AFTER DISCHARGE: CHECKS AFTER DISCHARGE: Check blood press - daily, Check your Temp as needed TREATMENT/EQUIPMENT ORDERS: ADAPTIVE EQUIPMENT NEEDED: None DISCHARGE MEDICATIONS: Home Meds Active Scripts Morphine Sulfate (MORPHINE SULFATE) 20 Mg/5 Ml Solution, 5 MG PO PRN Q2-4HRS PRN for PAIN for 30 Days, #30 MISC Prov:HAILE JANE MD 12/02/18 Lorazepam (LORAZEPAM INTENSOL) 2 Mg/1 Ml Oral.conc, 2 MG PO PRN Q2-4HRS PRN for ANXIETY for 30 Days, #30 MISC 2 Refills Prov:HAILE JANE MD 12/02/18 Levofloxacin (LEVAQUIN) 750 Mg Tablet, 750 MG PO DAILY06 for pneumonia for 7 Days, #7 TAB Prov:HAILE JANE MD 12/02/18 Reported Medications Tizanidine Hcl (ZANAFLEX) 4 Mg Tablet, 1 TAB PO Q8HRS for muscle spasms, #30 TAB 11/30/18 Quetiapine Fumarate (SEROQUEL) 50 Mg Tablet, 1 TAB PO QHS for insomina, #30 TAB 2 Refills 11/30/18 Sertraline Hcl (SERTRALINE HCL) 100 Mg Tablet, 100 MG PO DAILY for ANTI- DEPRESSANT, TAB 0 Refills 11/30/18 Hydralazine Hcl (HYDRALAZINE HCL) 50 Mg Tablet, 1 TAB PO TID for hypertension, # 90 TAB 5 Refills 11/29/18 Amlodipine Bes/Olmesartan Med (TREV 5-40 MG TABLET) 1 Each Tablet, 1 TAB PO DAILY for hypertension, #30 TAB 5 Refills 11/29/18 Tamsulosin Hcl (FLOMAX) 0.4 Mg Cap.er.24h, 1 CAP PO DAILY for bph, #30 CAP 11 Refills 10/29/18 Pregabalin (LYRICA) 50 Mg Capsule, 1 CAP PO BID for nerve pain, #60 CAP 10/29/18 Discontinued Reported Medications Oxycodone Hcl (OXYCODONE HCL IMMED.RELEASE) 10 Mg Tablet, 10 MG PO DAILY at 1400 PRN for PAIN, TAB 0 Refills 11/30/18 Oxycodone Hcl (OXYCODONE HCL IMMED.RELEASE) 10 Mg Tablet, 20 MG PO Daily DAILY AT 2000 for pain, TAB 0 Refills 11/30/18 Oxycodone Hcl (OXYCODONE HCL IMMED.RELEASE) 10 Mg Tablet, 20 MG PO DAILY08 PRN for PAIN, TAB 0 Refills 11/30/18 Ondansetron Hcl (ZOFRAN) 8 Mg Tablet, 1 TAB PO Q8HRS for N/V, #30 TAB 1 Refill 11/30/18 Pantoprazole Sodium (PROTONIX) 20 Mg Tablet.dr, 40 MG PO DAILY for acid reflux, TAB 11/29/18 Furosemide (LASIX) 20 Mg Tablet, 1 TAB PO DAILY for fluid overload, #90 TAB 1 Refill 10/29/18 Diazepam (VALIUM) 10 Mg Tablet, 20 MG PO BID for back pain, TAB 10/29/18 Tizanidine Hcl (TIZANIDINE HCL) 4 Mg Tablet, 4 MG PO QID PRN for MUSCLE SPASMS, TAB 11/29/18 Sertraline Hcl (ZOLOFT) 25 Mg Tablet, 1 TAB PO DAILY for depression, #30 TAB 2 Refills 10/29/18 Oxycodone/Apap 10-325 (PERCOCET 10-325 MG TABLET ) 1 Each Tablet, 2 TAB PO PRN TID PRN for PAIN, TAB 0 Refills 10/29/18 HAILE JANE MD Dec 02, 2018 12:23
--- NOTE | 2018-12-02 12:32 | PDOC3 ---
Discharge Summary Visit Information Date of Admission: Nov 30, 2018 Date of Discharge: Dec 02, 2018 Admitting Diagnosis: Sepsis from gram negative bacteremia Final Diagnosis Problems Medical Problems: (1) Sepsis Status: Acute Brief Hospital Course Allergies Allergies Coded Allergies Type Severity Reaction Last Updated Verified Penicillins Allergy Intermediate 10/29/18 No Vital Signs Vital Signs Date Time Temp Pulse Resp B/P (MAP) Pulse Ox O2 Delivery O2 Flow Rate FiO2 12/02/18 11:00 98.8 63 16 122/59 (80) 94 Room Air 98.8 Lab Results Laboratory Tests Test 11/30/18 13:25 11/30/18 14:05 11/30/18 15:17 12/01/18 05:05 Urine Collection Type Unknown Urine Color Lissa Urine Clarity Clear Urine pH 5.5 Urine Specific [place] 1.020 Urine Protein 100 mg/dL (NEG-TRACE) Urine Glucose (UA) Negative mg/dL (NEG) Urine Ketones (Stick) Trace mg/dL (NEG) Urine Blood Negative (NEG) Urine Nitrite Negative (NEG) Urine Bilirubin Moderate (NEG) Urine Urobilinogen Dipstick 1.0 mg/dL (0.2 mg/dL) Urine Leukocyte Esterase Small (NEG) Urine RBC 1-2 /HPF (0-2) Urine WBC 1-4 /HPF (0-4) Urine Squamous Epithelial Cells Few /LPF Urine Amorphous Sediment Present /HPF Urine Bacteria Few /HPF (0-FEW) Urine Hyaline Casts Few /HPF Urine Mucus Slight /LPF Lactic Acid Level 1.4 mmol/L (0.4-2.0) Nasal Screen MRSA (PCR) Negative (Negative) White Blood Count 8.6 x10^3/uL (4.0-11.0) Red Blood Count 2.86 x10^6/uL (4.30-5.70) Hemoglobin 9.1 g/dL (13.0-17.5) Hematocrit 26.9 % (39.0-53.0) Mean Corpuscular Volume 94 fL (79-100) Mean Corpuscular Hemoglobin 32 pg (25-35) Mean Corpuscular Hemoglobin Concent 34 g/dL (31-37) Red Cell Distribution Width 14.3 % (11.5-14.5) Platelet Count 103 x10^3/uL (140-400) Neutrophils (%) (Auto) 77 % (31-73) Lymphocytes (%) (Auto) 16 % (24-48) Monocytes (%) (Auto) 6 % (0-9) Eosinophils (%) (Auto) 0 % (0-3) Basophils (%) (Auto) 0 % (0-3) Neutrophils # (Auto) 6.7 x10^3uL (1.8-7.7) Lymphocytes # (Auto) 1.3 x10^3/uL (1.0-4.8) Monocytes # (Auto) 0.5 x10^3/uL (0.0-1.1) Eosinophils # (Auto) 0.0 x10^3/uL (0.0-0.7) Basophils # (Auto) 0.0 x10^3/uL (0.0-0.2) Sodium Level 143 mmol/L (136-145) Potassium Level 4.3 mmol/L (3.5-5.1) Chloride Level 108 mmol/L (98-107) Carbon Dioxide Level 25 mmol/L (21-32) Anion Gap 10 (6-14) Blood Urea Nitrogen 22 mg/dL (8-26) Creatinine 1.2 mg/dL (0.7-1.3) Estimated GFR (Cockcroft-Gault) 73.8 BUN/Creatinine Ratio 18 (6-20) Glucose Level 228 mg/dL (70-99) Calcium Level 8.0 mg/dL (8.5-10.1) Total Bilirubin 3.2 mg/dL (0.2-1.0) Aspartate Amino Transf (AST/SGOT) 31 U/L (15-37) Alanine Aminotransferase (ALT/SGPT) 31 U/L (16-63) Alkaline Phosphatase 249 U/L (46-116) Troponin I Quantitative 0.056 ng/mL (0.000-0.055) Total Protein 5.9 g/dL (6.4-8.2) Albumin 1.8 g/dL (3.4-5.0) Albumin/Globulin Ratio 0.4 (1.0-1.7) Test 12/02/18 08:45 12/02/18 12:11 White Blood Count 9.2 x10^3/uL (4.0-11.0) Red Blood Count 2.77 x10^6/uL (4.30-5.70) Hemoglobin 8.7 g/dL (13.0-17.5) Hematocrit 26.1 % (39.0-53.0) Mean Corpuscular Volume 94 fL (79-100) Mean Corpuscular Hemoglobin 31 pg (25-35) Mean Corpuscular Hemoglobin Concent 33 g/dL (31-37) Red Cell Distribution Width 14.4 % (11.5-14.5) Platelet Count 108 x10^3/uL (140-400) Neutrophils (%) (Auto) 71 % (31-73) Lymphocytes (%) (Auto) 22 % (24-48) Monocytes (%) (Auto) 6 % (0-9) Eosinophils (%) (Auto) 0 % (0-3) Basophils (%) (Auto) 1 % (0-3) Neutrophils # (Auto) 6.5 x10^3uL (1.8-7.7) Lymphocytes # (Auto) 2.0 x10^3/uL (1.0-4.8) Monocytes # (Auto) 0.6 x10^3/uL (0.0-1.1) Eosinophils # (Auto) 0.0 x10^3/uL (0.0-0.7) Basophils # (Auto) 0.1 x10^3/uL (0.0-0.2) Prothrombin Time 18.6 SEC (11.7-14.0) Prothromb Time International Ratio 1.6 (0.8-1.1) Sodium Level 140 mmol/L (136-145) Potassium Level 4.5 mmol/L (3.5-5.1) Chloride Level 106 mmol/L (98-107) Carbon Dioxide Level 26 mmol/L (21-32) Anion Gap 8 (6-14) Blood Urea Nitrogen 18 mg/dL (8-26) Creatinine 1.1 mg/dL (0.7-1.3) Estimated GFR (Cockcroft-Gault) 81.5 BUN/Creatinine Ratio 16 (6-20) Glucose Level 242 mg/dL (70-99) Calcium Level 8.1 mg/dL (8.5-10.1) Total Bilirubin 3.2 mg/dL (0.2-1.0) Aspartate Amino Transf (AST/SGOT) 37 U/L (15-37) Alanine Aminotransferase (ALT/SGPT) 33 U/L (16-63) Alkaline Phosphatase 290 U/L (46-116) Troponin I Quantitative 0.052 ng/mL (0.000-0.055) Total Protein 5.5 g/dL (6.4-8.2) Albumin 1.7 g/dL (3.4-5.0) Albumin/Globulin Ratio 0.4 (1.0-1.7) Glucose (Fingerstick) 253 mg/dL (70-99) Laboratory Tests Test 12/02/18 08:45 12/02/18 12:11 White Blood Count 9.2 x10^3/uL (4.0-11.0) Red Blood Count 2.77 x10^6/uL (4.30-5.70) Hemoglobin 8.7 g/dL (13.0-17.5) Hematocrit 26.1 % (39.0-53.0) Mean Corpuscular Volume 94 fL (79-100) Mean Corpuscular Hemoglobin 31 pg (25-35) Mean Corpuscular Hemoglobin Concent 33 g/dL (31-37) Red Cell Distribution Width 14.4 % (11.5-14.5) Platelet Count 108 x10^3/uL (140-400) Neutrophils (%) (Auto) 71 % (31-73) Lymphocytes (%) (Auto) 22 % (24-48) Monocytes (%) (Auto) 6 % (0-9) Eosinophils (%) (Auto) 0 % (0-3) Basophils (%) (Auto) 1 % (0-3) Neutrophils # (Auto) 6.5 x10^3uL (1.8-7.7) Lymphocytes # (Auto) 2.0 x10^3/uL (1.0-4.8) Monocytes # (Auto) 0.6 x10^3/uL (0.0-1.1) Eosinophils # (Auto) 0.0 x10^3/uL (0.0-0.7) Basophils # (Auto) 0.1 x10^3/uL (0.0-0.2) Prothrombin Time 18.6 SEC (11.7-14.0) Prothromb Time International Ratio 1.6 (0.8-1.1) Sodium Level 140 mmol/L (136-145) Potassium Level 4.5 mmol/L (3.5-5.1) Chloride Level 106 mmol/L (98-107) Carbon Dioxide Level 26 mmol/L (21-32) Anion Gap 8 (6-14) Blood Urea Nitrogen 18 mg/dL (8-26) Creatinine 1.1 mg/dL (0.7-1.3) Estimated GFR (Cockcroft-Gault) 81.5 BUN/Creatinine Ratio 16 (6-20) Glucose Level 242 mg/dL (70-99) Calcium Level 8.1 mg/dL (8.5-10.1) Total Bilirubin 3.2 mg/dL (0.2-1.0) Aspartate Amino Transf (AST/SGOT) 37 U/L (15-37) Alanine Aminotransferase (ALT/SGPT) 33 U/L (16-63) Alkaline Phosphatase 290 U/L (46-116) Troponin I Quantitative 0.052 ng/mL (0.000-0.055) Total Protein 5.5 g/dL (6.4-8.2) Albumin 1.7 g/dL (3.4-5.0) Albumin/Globulin Ratio 0.4 (1.0-1.7) Glucose (Fingerstick) 253 mg/dL (70-99) Brief Hospital Course The patient is a 63-year-old gentleman who has had symptoms of nausea, vomiting, abdominal pain in October 2018. 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 He was evaluated by hepatobiliary surgery and he was thought to be unresectable because it involved both sites of the liver. He was then referred for chemotherapy, which was deferred because of poor performance status (4). He was admitted to [facility] on 11/30/2018 with complaints of fever. He also had nausea and vomiting. He was admitted to the ICU and started on antibiotics, had 4 bottle positive for gram negative rods, was placed on levaquin and cefepime, seen by ID and oncology. Ultimately, he was seen by hospice at the behest of himself and his and was discharged home on oral levaquin with hospice services through [facility]. He is still hopeful to regain enough performance status to tolerate chemotherapy and continue to fight his cancer, but understands and wishes for hospice services at home. Greater than 30 minutes spent on discharge. 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 Patient denies angina-type of symptoms no chest pain hemodynamically stable, troponin trending down Current smoker, patient's says that he has not smoked in 5 days Lactic acid most likely secondary to low effective circulatory volume acute renal failure 2 to vasomotor nephropathy Discharge Information Condition at Discharge: Stable Follow Up: Weeks (2) Disposition/Orders: D/C to Home w/ Hospice ([facility]) Scheduled Amlodipine Bes/Olmesartan Med (Sandra 5-40 Mg Tablet) 1 Each Tablet, 1 TAB PO DAILY for hypertension, #30 Ref 5 (Reported) Entered as Reported by: JERRY THORNE on 11/29/18 0748 Last Taken: Unknown Dose on 11/29/18 Last Action: Converted on 11/30/181510 by FABI ABURTO MD Hydralazine Hcl (Hydralazine Hcl) 50 Mg Tablet, 1 TAB PO TID for hypertension, # 90 Ref 5 (Reported) Entered as Reported by: JERRY THORNE on 11/29/1848 Last Taken: Unknown Dose on 11/29/18 Last Action: Converted on 11/30/181511 by FABI ABURTO MD Levofloxacin (Levaquin) 750 Mg Tablet, 750 MG PO DAILY06 for pneumonia for 7 Days, #7 Prescribed by: HAILE JANE MD on 12/02/18 1050 Pregabalin (Lyrica) 50 Mg Capsule, 1 CAP PO BID for nerve pain, #60 (Reported) Entered as Reported by: LYLA ADAMS on 10/29/18 2225 Last Taken: Unknown Dose on 11/29/18 Last Action: Continued on 11/30/181510 by FABI ABURTO MD Quetiapine Fumarate (Seroquel) 50 Mg Tablet, 1 TAB PO QHS for insomina, #30 Ref 2 (Reported) Entered as Reported by: KATHIA FALK on 11/30/18 1336 Last Taken: Unknown Dose on 11/29/18 Last Action: Converted on 11/30/181511 by FABI ABURTO MD Sertraline Hcl (Sertraline Hcl) 100 Mg Tablet, 100 MG PO DAILY for ANTI- DEPRESSANT, Ref 0 (Reported) Entered as Reported by: KATHIA FALK on 11/30/181335 Last Taken: Unknown Dose on 11/29/18 Last Action: Converted on 11/30/181511 by FABI ABURTO MD Tamsulosin Hcl (Flomax) 0.4 Mg Cap.er.24h, 1 CAP PO DAILY for bph, #30 Ref 11 ( Reported) Entered as Reported by: LYLA ADAMS on 10/29/182224 Last Taken: Unknown Dose on 11/29/18 Last Action: Continued on 11/30/181510 by FABI ABURTO MD Tizanidine Hcl (Zanaflex) 4 Mg Tablet, 1 TAB PO Q8HRS for muscle spasms, #30 ( Reported) Entered as Reported by: KATHIA FALK on 11/30/181337 Last Taken: Unknown Dose on 11/29/18 Last Action: Converted on 11/30/181511 by FABI ABURTO MD Scheduled PRN Lorazepam (Lorazepam Intensol) 2 Mg/1 Ml Oral.conc, 2 MG PO PRN Q2-4HRS PRN for ANXIETY for 30 Days, #30 Ref 2 Prescribed by: HAILE JANE MD on 12/02/18 1050 Morphine Sulfate (Morphine Sulfate) 20 Mg/5 Ml Solution, 5 MG PO PRN Q2-4HRS PRN for PAIN for 30 Days, #30 Prescribed by: HAILE JANE MD on 12/02/18 1050 Discontinued Medications Diazepam (Valium) 10 Mg Tablet, 20 MG PO BID for back pain, (Reported) Entered as Reported by: LYLA ADAMS on 10/29/182224 Last Taken: Unknown Dose on 11/29/18 Last Action: Converted on 11/30/181510 by FABI ABURTO MD Furosemide (Lasix) 20 Mg Tablet, 1 TAB PO DAILY for fluid overload, #90 Ref 1 ( Reported) Entered as Reported by: LYLA ADAMS on 10/29/182224 Last Taken: Unknown Dose on 11/29/18 Last Action: Continued on 11/30/181510 by FABI ABURTO MD Ondansetron Hcl (Zofran) 8 Mg Tablet, 1 TAB PO Q8HRS for N/V, #30 Ref 1 ( Reported) Entered as Reported by: KATHIA FALK on 11/30/181335 Last Taken: Unknown Dose on 11/29/18 Last Action: Converted on 11/30/181511 by FABI ABURTO MD Oxycodone Hcl (Oxycodone Hcl Immed.release) 10 Mg Tablet, 20 MG PO DAILY08 PRN for PAIN, Ref 0 (Reported) Entered as Reported by: JEANNE HARDY on 11/30/181448 Last Taken: UNKNOWN on Unknown Date & Time Last Action: Converted on 11/30 by FABI ABURTO MD Oxycodone Hcl (Oxycodone Hcl Immed.release) 10 Mg Tablet, 20 MG PO Daily DAILY AT 2000 for pain, Ref 0 (Reported) Entered as Reported by: JEANNE HARDY on 11/30/181448 Last Taken: UNKNOWN on Unknown Date & Time Last Action: Converted on 11/30 by FABI ABURTO MD Oxycodone Hcl (Oxycodone Hcl Immed.release) 10 Mg Tablet, 10 MG PO DAILY at 1400 PRN for PAIN, Ref 0 (Reported) Entered as Reported by: JEANNE HARDY on 11/30/181448 Last Taken: UNKNOWN on Unknown Date & Time Last Action: Converted on 11/30 by FABI ABURTO MD Oxycodone/Apap 10-325 (Percocet 10-325 Mg Tablet ) 1 Each Tablet, 2 TAB PO PRN TID PRN for PAIN, Ref 0 (Reported) Entered as Reported by: LYLA ADAMS on 10/29/182224 Last Action: Discontinued on 11/30/181335 by KATHIA FALK Pantoprazole Sodium (Protonix) 20 Mg Tablet.dr, 40 MG PO DAILY for acid reflux, (Reported) Entered as Reported by: JERRY THORNE on 11/29/18 0748 Last Taken: Unknown Dose on 11/29/18 Last Action: Converted on 11/30/181511 by FABI ABURTO MD Sertraline Hcl (Zoloft) 25 Mg Tablet, 1 TAB PO DAILY for depression, #30 Ref 2 ( Reported) Discontinued Reason: Prescription changed Entered as Reported by: LYLA ADAMS on 10/29/185 Tizanidine Hcl (Tizanidine Hcl) 4 Mg Tablet, 4 MG PO QID PRN for MUSCLE SPASMS, (Reported) Entered as Reported by: JERRY THORNE on 11/29/18 0748 Last Action: Discontinued on 11/30/18 1336 by HAILE BUCKNER MD Dec 02, 2018 12:32
--- NOTE | 2018-12-02 12:44 | PDOC ---
PROGRESS NOTES Subjective Subjective HPI - f/u of Cholangiocarcinoma ROS - very weak, no fever Objective Objective Vital Signs Date Time Temp Pulse Resp B/P (MAP) Pulse Ox O2 Delivery O2 Flow Rate FiO2 12/02/18 11:00 98.8 63 16 122/59 (80) 94 Room Air 98.8 Intake and Output 12/02/18 06:59 Intake Total 1790 ml Output Total 1750 ml Balance 40 ml Intake Oral 1230 ml IV Total 560 ml Output Urine Total 1750 ml Physical Exam Heart: Normal S1, Normal S2 General: Alert, No acute distress Lungs: Clear to auscultation Assessment Assessment Problems Medical Problems: (1) Sepsis Status: Acute IMPRESSION AND PLAN: 1. 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 He was evaluated by hepatobiliary surgery at [facility] and he was deemed to be unresectable. I had seen him at my office for discussion regarding chemotherapy, which had to be deferred because of declining functional status. He continues to feel very weak. Appreciate palliative care consult and pt has decided to pursue with hospice and I agree. 2. Jaundice, improving. 3. Fever. Appreciate management per primary team. Comment Review of Relevant I have reviewed the following items theo (where applicable) has been applied. Labs Laboratory Tests Test 11/30/18 13:25 11/30/18 14:05 11/30/18 15:17 12/01/18 05:05 Urine Collection Type Unknown Urine Color Lissa Urine Clarity Clear Urine pH 5.5 Urine Specific [place] 1.020 Urine Protein 100 mg/dL (NEG-TRACE) Urine Glucose (UA) Negative mg/dL (NEG) Urine Ketones (Stick) Trace mg/dL (NEG) Urine Blood Negative (NEG) Urine Nitrite Negative (NEG) Urine Bilirubin Moderate (NEG) Urine Urobilinogen Dipstick 1.0 mg/dL (0.2 mg/dL) Urine Leukocyte Esterase Small (NEG) Urine RBC 1-2 /HPF (0-2) Urine WBC 1-4 /HPF (0-4) Urine Squamous Epithelial Cells Few /LPF Urine Amorphous Sediment Present /HPF Urine Bacteria Few /HPF (0-FEW) Urine Hyaline Casts Few /HPF Urine Mucus Slight /LPF Lactic Acid Level 1.4 mmol/L (0.4-2.0) Nasal Screen MRSA (PCR) Negative (Negative) White Blood Count 8.6 x10^3/uL (4.0-11.0) Red Blood Count 2.86 x10^6/uL (4.30-5.70) Hemoglobin 9.1 g/dL (13.0-17.5) Hematocrit 26.9 % (39.0-53.0) Mean Corpuscular Volume 94 fL (79-100) Mean Corpuscular Hemoglobin 32 pg (25-35) Mean Corpuscular Hemoglobin Concent 34 g/dL (31-37) Red Cell Distribution Width 14.3 % (11.5-14.5) Platelet Count 103 x10^3/uL (140-400) Neutrophils (%) (Auto) 77 % (31-73) Lymphocytes (%) (Auto) 16 % (24-48) Monocytes (%) (Auto) 6 % (0-9) Eosinophils (%) (Auto) 0 % (0-3) Basophils (%) (Auto) 0 % (0-3) Neutrophils # (Auto) 6.7 x10^3uL (1.8-7.7) Lymphocytes # (Auto) 1.3 x10^3/uL (1.0-4.8) Monocytes # (Auto) 0.5 x10^3/uL (0.0-1.1) Eosinophils # (Auto) 0.0 x10^3/uL (0.0-0.7) Basophils # (Auto) 0.0 x10^3/uL (0.0-0.2) Sodium Level 143 mmol/L (136-145) Potassium Level 4.3 mmol/L (3.5-5.1) Chloride Level 108 mmol/L (98-107) Carbon Dioxide Level 25 mmol/L (21-32) Anion Gap 10 (6-14) Blood Urea Nitrogen 22 mg/dL (8-26) Creatinine 1.2 mg/dL (0.7-1.3) Estimated GFR (Cockcroft-Gault) 73.8 BUN/Creatinine Ratio 18 (6-20) Glucose Level 228 mg/dL (70-99) Calcium Level 8.0 mg/dL (8.5-10.1) Total Bilirubin 3.2 mg/dL (0.2-1.0) Aspartate Amino Transf (AST/SGOT) 31 U/L (15-37) Alanine Aminotransferase (ALT/SGPT) 31 U/L (16-63) Alkaline Phosphatase 249 U/L (46-116) Troponin I Quantitative 0.056 ng/mL (0.000-0.055) Total Protein 5.9 g/dL (6.4-8.2) Albumin 1.8 g/dL (3.4-5.0) Albumin/Globulin Ratio 0.4 (1.0-1.7) Test 12/02/18 08:45 12/02/18 12:11 White Blood Count 9.2 x10^3/uL (4.0-11.0) Red Blood Count 2.77 x10^6/uL (4.30-5.70) Hemoglobin 8.7 g/dL (13.0-17.5) Hematocrit 26.1 % (39.0-53.0) Mean Corpuscular Volume 94 fL (79-100) Mean Corpuscular Hemoglobin 31 pg (25-35) Mean Corpuscular Hemoglobin Concent 33 g/dL (31-37) Red Cell Distribution Width 14.4 % (11.5-14.5) Platelet Count 108 x10^3/uL (140-400) Neutrophils (%) (Auto) 71 % (31-73) Lymphocytes (%) (Auto) 22 % (24-48) Monocytes (%) (Auto) 6 % (0-9) Eosinophils (%) (Auto) 0 % (0-3) Basophils (%) (Auto) 1 % (0-3) Neutrophils # (Auto) 6.5 x10^3uL (1.8-7.7) Lymphocytes # (Auto) 2.0 x10^3/uL (1.0-4.8) Monocytes # (Auto) 0.6 x10^3/uL (0.0-1.1) Eosinophils # (Auto) 0.0 x10^3/uL (0.0-0.7) Basophils # (Auto) 0.1 x10^3/uL (0.0-0.2) Prothrombin Time 18.6 SEC (11.7-14.0) Prothromb Time International Ratio 1.6 (0.8-1.1) Sodium Level 140 mmol/L (136-145) Potassium Level 4.5 mmol/L (3.5-5.1) Chloride Level 106 mmol/L (98-107) Carbon Dioxide Level 26 mmol/L (21-32) Anion Gap 8 (6-14) Blood Urea Nitrogen 18 mg/dL (8-26) Creatinine 1.1 mg/dL (0.7-1.3) Estimated GFR (Cockcroft-Gault) 81.5 BUN/Creatinine Ratio 16 (6-20) Glucose Level 242 mg/dL (70-99) Calcium Level 8.1 mg/dL (8.5-10.1) Total Bilirubin 3.2 mg/dL (0.2-1.0) Aspartate Amino Transf (AST/SGOT) 37 U/L (15-37) Alanine Aminotransferase (ALT/SGPT) 33 U/L (16-63) Alkaline Phosphatase 290 U/L (46-116) Troponin I Quantitative 0.052 ng/mL (0.000-0.055) Total Protein 5.5 g/dL (6.4-8.2) Albumin 1.7 g/dL (3.4-5.0) Albumin/Globulin Ratio 0.4 (1.0-1.7) Glucose (Fingerstick) 253 mg/dL (70-99) Laboratory Tests Test 12/02/18 08:45 12/02/18 12:11 White Blood Count 9.2 x10^3/uL (4.0-11.0) Red Blood Count 2.77 x10^6/uL (4.30-5.70) Hemoglobin 8.7 g/dL (13.0-17.5) Hematocrit 26.1 % (39.0-53.0) Mean Corpuscular Volume 94 fL (79-100) Mean Corpuscular Hemoglobin 31 pg (25-35) Mean Corpuscular Hemoglobin Concent 33 g/dL (31-37) Red Cell Distribution Width 14.4 % (11.5-14.5) Platelet Count 108 x10^3/uL (140-400) Neutrophils (%) (Auto) 71 % (31-73) Lymphocytes (%) (Auto) 22 % (24-48) Monocytes (%) (Auto) 6 % (0-9) Eosinophils (%) (Auto) 0 % (0-3) Basophils (%) (Auto) 1 % (0-3) Neutrophils # (Auto) 6.5 x10^3uL (1.8-7.7) Lymphocytes # (Auto) 2.0 x10^3/uL (1.0-4.8) Monocytes # (Auto) 0.6 x10^3/uL (0.0-1.1) Eosinophils # (Auto) 0.0 x10^3/uL (0.0-0.7) Basophils # (Auto) 0.1 x10^3/uL (0.0-0.2) Prothrombin Time 18.6 SEC (11.7-14.0) Prothromb Time International Ratio 1.6 (0.8-1.1) Sodium Level 140 mmol/L (136-145) Potassium Level 4.5 mmol/L (3.5-5.1) Chloride Level 106 mmol/L (98-107) Carbon Dioxide Level 26 mmol/L (21-32) Anion Gap 8 (6-14) Blood Urea Nitrogen 18 mg/dL (8-26) Creatinine 1.1 mg/dL (0.7-1.3) Estimated GFR (Cockcroft-Gault) 81.5 BUN/Creatinine Ratio 16 (6-20) Glucose Level 242 mg/dL (70-99) Calcium Level 8.1 mg/dL (8.5-10.1) Total Bilirubin 3.2 mg/dL (0.2-1.0) Aspartate Amino Transf (AST/SGOT) 37 U/L (15-37) Alanine Aminotransferase (ALT/SGPT) 33 U/L (16-63) Alkaline Phosphatase 290 U/L (46-116) Troponin I Quantitative 0.052 ng/mL (0.000-0.055) Total Protein 5.5 g/dL (6.4-8.2) Albumin 1.7 g/dL (3.4-5.0) Albumin/Globulin Ratio 0.4 (1.0-1.7) Glucose (Fingerstick) 253 mg/dL (70-99) Microbiology 11/30/18 Blood Culture - Final, Complete 11/30/18 Urine Culture - Final, Complete 11/30/18 Urine Culture Result 1 (MEGAN) - Final, Complete Medications Current Medications Sodium Chloride 1,000 ml @ 1,000 mls/hr 1X ONCE IV Last administered on 11:12; Start 11/30/18 at 11:15; Stop 11/30/18 at 12:14; Status DC Levofloxacin/ Dextrose 150 ml @ 100 mls/hr 1X ONCE IV Last administered on 11:34; Start 11/30/18 at 11:15; Stop 11/30/18 at 12:44; Status DC Vancomycin HCl 250 ml @ 250 mls/hr 1X ONCE IV ; Start 11/30/18 at 11:15; Stop 11/30/18 at 12:14; Status UNV Vancomycin HCl 1.5 gm/Sodium Chloride 500 ml @ 250 mls/hr 1X ONCE IV Last administered on 11/30/18at 12:07; Start 11/30/18 at 11:15; Stop 11/30/18 at 13:14 ; Status DC Sodium Chloride 1,000 ml @ 1,000 mls/hr 1X ONCE IV Last administered on at 12:08; Start 11/30/18 at 12:00; Stop 11/30/18 at 12:59; Status DC Ondansetron HCl (Zofran) 4 mg PRN Q8HRS PRN IV NAUSEA/VOMITING; Start 11/30/18 at 12:00; Stop 12/01/18 at 11:59; Status DC Morphine Sulfate (Morphine Sulfate) 2 mg PRN Q2HR PRN IV PAIN; Start 11/30/18 at 12:00; Stop 12/01/18 at 11:59; Status DC Sodium Chloride 1,000 ml @ 75 mls/hr [id number] IV Last administered on at 02:10; Start 11/30/18 at 12:00; Stop 12/01/18 at 11:59; Status DC Furosemide (Lasix) 20 mg DAILY PO Last administered on 12/02/18 08:26; Start 11/30/18 at 16:00 Pregabalin (Lyrica) 50 mg BID PO Last administered on 12/02/18 08:27; Start at 21:00 Tamsulosin HCl (Flomax) 0.4 mg DAILY PO Last administered on 12/02/18at 08:27; Start 11/30/18 at 16:00 Non-Formulary Medication (Amlodipine Bes/ Olmesartan Med (Sandra 5-40 Mg Tablet)) 1 tab DAILY PO ; Start 12/01/18 at 09:00; Status UNV Diazepam (Valium) 20 mg BID PO Last administered on 12/02/18 08:28; Start at 21:00 Hydralazine HCl (Apresoline) 50 mg TID PO Last administered on 12/02/18 08:26 ; Start 11/30/18 at 21:00 Ondansetron HCl (Zofran Odt) 8 mg Q8HRS PO ; Start 11/30/18 at 16:00; Stop 11/30 at 16:00; Status DC Oxycodone HCl (Roxicodone) 10 mg DAILY@1400 PO Last administered on 12/01/18 13:54; Start 11/30/18 at 16:00 Oxycodone HCl (Roxicodone) 20 mg BID@0800,2000 PO Last administered on 08:26; Start 11/30/18 at 21:00 Non-Formulary Medication (Oxycodone Hcl (Oxycodone Hcl Immed.release)) 20 mg DAILY08 PRN PO PAIN; Start 11/30/18 at 15:15; Status UNV Pantoprazole Sodium (Protonix) 40 mg DAILYAC PO Last administered on 12/02/18 08:26; Start 11/30/18 at 16:00 Quetiapine Fumarate (SEROquel) 50 mg QHS PO Last administered on 12/01/18 20: 25; Start 11/30/18 at 21:00 Sertraline HCl (Zoloft) 100 mg DAILY PO Last administered on 12/02/18 08:27; Start 11/30/18 at 16:00 Tizanidine HCl (Zanaflex) 4 mg Q8HRS PO Last administered on 12/02/18 06:18; Start 11/30/18 at 22:00 Amlodipine Besylate (Norvasc) 5 mg DAILY PO Last administered on 12/02/18 08: 26; Start 11/30/18 at 16:00 Losartan Potassium (Cozaar) 100 mg DAILY PO Last administered on 12/02/18 08: 27; Start 11/30/18 at 16:00 Ondansetron HCl (Zofran Odt) 8 mg PRN Q8HRS PRN PO NAUSEA/VOMITING; Start 11/30 at 16:00 Sodium Chloride 1,000 ml @ 1,000 mls/hr 1X ONCE IV Last administered on at 15:42; Start 11/30/18 at 16:00; Stop 11/30/18 at 16:59; Status DC Levofloxacin/ Dextrose 100 ml @ 100 mls/hr Q24H IV ; Start 12/01/18 at 12:30; Stop 12/01/18 at 12:30; Status DC Vancomycin HCl (Vanco Per Pharmacy) 1 each PRN DAILY PRN MC SEE COMMENTS Last administered on 11/30/18at 12:07; Start 12/01/18 at 12:30; Stop 12/01/18 at 12:30 ; Status DC Vancomycin HCl 1 gm/Sodium Chloride 250 ml @ 250 mls/hr Q24H IV ; Start at 12:00; Stop 12/01/18 at 12:00; Status DC Vancomycin HCl (Vancomycin Trough Level) 1 each 1X ONCE MC ; Start 12/02/18 at 11:30; Stop 12/02/18 at 11:31; Status Cancel Levofloxacin (Levaquin) 750 mg DAILY06 PO Last administered on 12/02/18at 06:18 ; Start 12/01/18 at 09:00 Magnesium Hydroxide (Milk Of Magnesia) 2,400 mg 1X ONCE PO Last administered on 12/01/18at 10:23; Start 12/01/18 at 10:30; Stop 12/01/18 at 10:31; Status DC Cefepime HCl (Maxipime) 2 gm Q12HR IVP Last administered on 12/02/18at 08:25; Start 12/01/18 at 11:30 Bisacodyl (Dulcolax Tab) 5 mg PRN DAILY PRN PO CONSTIPATION Last administered on 12/01/18at 17:56; Start 12/01/18 at 17:45 Insulin Human Lispro (HumaLOG) 0-7 UNITS TIDWMEALS SQ ; Start 12/02/18 at 12:00 Dextrose (Dextrose 50%-Water Syringe) 12.5 gm PRN Q15MIN PRN IV SEE COMMENTS; Start 12/02/18 at 08:45 Active Scripts Active Morphine Sulfate 20 Mg/5 Ml Solution 5 Mg PO PRN Q2-4HRS PRN 30 Days Lorazepam Intensol (Lorazepam) 2 Mg/1 Ml Oral.conc 2 Mg PO PRN Q2-4HRS PRN 30 Days Levaquin (Levofloxacin) 750 Mg Tablet 750 Mg PO DAILY06 7 Days Reported Zanaflex (Tizanidine Hcl) 4 Mg Tablet 1 Tab PO Q8HRS Seroquel (Quetiapine Fumarate) 50 Mg Tablet 1 Tab PO QHS Sertraline Hcl 100 Mg Tablet 100 Mg PO DAILY Hydralazine Hcl 50 Mg Tablet 1 Tab PO TID Sandra 5-40 Mg Tablet (Amlodipine Bes/Olmesartan Med) 1 Each Tablet 1 Tab PO DAILY Flomax (Tamsulosin Hcl) 0.4 Mg Cap.er.24h 1 Cap PO DAILY Lyrica (Pregabalin) 50 Mg Capsule 1 Cap PO BID Vitals/I & O Vital Sign - Last 24 Hours 12/01/18 12/01/18 12/01/18 12/01/18 13:55 14:51 19:58 20:00 Temp 99.6 98.6 99.6 98.6 Pulse 78 89 74 Resp 19 20 B/P (MAP) 171/76 165/74 (104) 137/61 (86) Pulse Ox 97 97 O2 Delivery Room Air Room Air Room Air 12/01/18 12/01/18 12/01/18 12/01/18 20:25 20:25 21:25 23:27 Temp 98.3 98.3 Pulse 74 72 Resp 20 B/P (MAP) 137/61 155/74 (101) Pulse Ox 94 O2 Delivery Room Air Room Air Room Air 12/02/18 12/02/18 12/02/18 12/02/18 03:20 07:00 08:00 08:26 Temp 98.3 100.0 98.3 100.0 Pulse 84 64 64 Resp 20 16 B/P (MAP) 162/74 (103) 137/64 (88) 137/64 Pulse Ox 94 95 O2 Delivery Room Air Room Air Room Air 12/02/18 12/02/18 12/02/18 08:26 08:27 11:00 Temp 98.8 98.8 Pulse 64 64 63 Resp 16 B/P (MAP) 137/64 137/64 122/59 (80) Pulse Ox 94 O2 Delivery Room Air Intake and Output 3/20/19 3/20/19 3/21/19 14:59 22:59 06:59 Intake Total 1040 ml 750 ml Output Total 600 ml 1150 ml Balance 440 ml -400 ml Nutrition Consultation Dietary Evaluation: Recommendations by RD: Increase Calorie Intake, Protein supplementation Comments: Recommend Ensure Enlive-strawberry TID Expected Outcomes/Goals: P.O. intake to meet >75% estimated needs Interpretation of weight loss: >5% in 1 month Malnutrition Findings: Body Fat Depletion (Non Severe: Mod to Severe Weight Status: Appropriate KAROLYN NIELSON MD Dec 02, 2018 12:44
[2018-12-02 15:00] VITALS: BP 140/59
[2018-12-02 15:04] VITALS: BP 122/59
--- NOTE | 2018-12-02 17:33 | NUR ---
Patient discharged home with hospice. Discharge instructions, medications, and hospice care discussed with . verbalized understanding. Discharge papers and prescriptions given to . Port deaccessed and IV discontinued. Ying cath in place and draining. Patient requested to keep catheter in. took all belongings home. Patient assisted out on gurney with EMS at this time.
== END 2018-12-02 17:52 | disposition hospice, home (50) | DRG 871 ==
LOC: ER 09:32 → 1 WEST ICU 11:57 → 6 SOUTH 12-01 11:16
PROVIDERS: ADMIT Internal Medicine; ATTEND Internal Medicine
DX: A41.50 Gram-negative sepsis, unspecified (principal); N17.0 Acute kidney failure with tubular necrosis; C78.7 Secondary malignant neoplasm of liver and intrahepatic bile duct; F12.90 Cannabis use, unspecified, uncomplicated; I50.9 Heart failure, unspecified; I11.0 Hypertensive heart disease with heart failure; N40.0 Benign prostatic hyperplasia without lower urinary tract symptoms; F32.9 Major depressive disorder, single episode, unspecified; F41.9 Anxiety disorder, unspecified; M19.90 Unspecified osteoarthritis, unspecified site; Z85.05 Personal history of malignant neoplasm of liver; Z87.891 Personal history of nicotine dependence
CPT/HCPCS: 36415; 71045; 80053; 81001; 82140; 82150; 82962; 83605; 83690; 84484; 85007; 85025; 85610; 85730; 87040; 87077; 87086; 87205; 87641; 87804; 93005; 96365; 99406; J0692; J1815; J1956; J3370; J7030; J7040; 99285-25